=== PATIENT | female | born 1945 | race Two or more races ===

== ENCOUNTER 2020-09-17 15:46 | Inpatient (IN) | payer MEDICARE, BC ==
[~2020-09-17] VITALS: Ht 167.6 cm; Wt 83.7 kg
[2020-09-17 16:13] LABS: BASOPHILS # (AUTO) 0.1 /CMM (0.0-0.2); BASOPHILS % (AUTO) 0.5 % (0.0-2.0); EOSINOPHILS % (AUTO) 1.1 % (0.0-6.0); HEMATOCRIT 34 % (33-45); HEMOGLOBIN 10.8 g/dL (11.5-14.8); LYMPHOCYTES # (AUTO) 0.6 /CMM (0.8-4.8); LYMPHOCYTES % (AUTO) 5.5 % (20.0-44.0); MEAN CORPUSCULAR HGB CONC 32 g/dl (31.0-36.0); MEAN CORPUSCULAR VOLUME 97 fL (82-100); MONOCYTES # (AUTO) 0.5 /CMM (0.1-1.30); MONOCYTES % (AUTO) 4.4 % (2.0-12.0); NEUTROPHILS % (AUTO) 88.5 % (43.0-81.0); PLATELET COUNT (AUTO) 362 /CMM (150-450); RED BLOOD CELL COUNT(AUTO) 3.51 MIL/uL (4.0-5.2); WHITE BLOOD COUNT (AUTO) 11.2 K/uL (4.3-11.0)
--- NOTE | 2020-09-17 16:13 | NUR ---
BIBPA FROM SNF TO ER BED 5. NON VERBAL BUT AWAKE. PT IS ON VENT AC10, VT500, O2 40% AND +5PEEP. BED BOUND. BROUGHT IN FOR AN ABNORMAL CHEST XRAY RESULT. PER REPORT, SUPERFICIAL MEDIASTINAL WIDENING ANEURYSM / LYMPHADENOPATHY. PT NOTED HYPERTENSIVE WITH SBPO 170. MD WAS AT THE BEDSIDE FOR EVAL. ORDERS RECEIVED, NOTED AND CARRIED OUT. IV LINE ESTABLSIHED ON LAC 18G. BLOOD DRAWN AND GIVEN TO MIDDLE SCHOOL COACH AT BEDSIDE.
[2020-09-17] MEDS ORDERED: DEXT1CAP3 PO (16:14)
[2020-09-17] MEDS ORDERED: CALC0.253 GT (16:14)
[2020-09-17] MEDS ORDERED: MEMA10TA56 PO (16:14)
[2020-09-17] MEDS ORDERED: APIX5TAB PO (16:14)
[2020-09-17] MEDS ORDERED: SERT100T12 PO (16:14)
[2020-09-17] MEDS ORDERED: CARV6.252 PO (16:14)
[2020-09-17] MEDS ORDERED: GABA300C PO (16:14)
[2020-09-17] MEDS ORDERED: GALA4TAB23 PO (16:14)
[2020-09-17] MEDS ORDERED: LEVO75TA7 PO (16:14)
[2020-09-17 16:21] LABS: CALCIUM, SERUM 8.1 mg/dL (8.5-10.1); CREATININE 0.7 mg/dL (0.6-1.3); POTASSIUM 4.3 mmol/L (3.5-5.1)
[2020-09-17] MEDS ORDERED: BISA10SU11 RC (16:23)
[2020-09-17] MEDS ORDERED: FAMO20TA8 GT (16:23)
[2020-09-17] MEDS ORDERED: ACET-868 GT (16:23)
[2020-09-17] MEDS ORDERED: FURO-144 GT (16:23)
[2020-09-17] MEDS ORDERED: IPRA0.2S49 IH (16:23)
[2020-09-17] MEDS ORDERED: ATOR80TA GT (16:23)
[2020-09-17] MEDS ORDERED: METO100T14 GT (16:23)
[2020-09-17] MEDS ORDERED: NA P133E RC (16:23)
[2020-09-17] MEDS ORDERED: TRAM50TA2 GT (16:23)
[2020-09-17] MEDS ORDERED: MAGN400T8 GT (16:23)
[2020-09-17] MEDS ORDERED: CLON1TAB12 GT (16:23)
[2020-09-17] MEDS ORDERED: LEVO125T8 GT (16:23)
[2020-09-17] MEDS ORDERED: AMIN887L GT (16:23)
[2020-09-17] MEDS ORDERED: QUET25TA GT (16:23)
[2020-09-17] MEDS ORDERED: MULT-439 GT (16:23)
[2020-09-17] MEDS ORDERED: EZET10TA6 GT (16:23)
[2020-09-17] MEDS ORDERED: MAGN400O6 GT (16:23)
--- NOTE | 2020-09-17 16:26 | NUR ---
COVID SWAB DONE AND SENT TO LAB
[2020-09-17] MEDS ORDERED: IV NS 0.9% 250 ML IV ONE (16:31)
[2020-09-17] MEDS ORDERED: IOHEXOL-350 100 ML VIAL IV ONE (16:31)
[2020-09-17] MEDS ORDERED: CT SWABBABLE VALVE TRANS SET 1 EA INFUS.SET MC ONE (16:31)
--- NOTE | 2020-09-17 16:44 | NUR ---
PT TO CT ON DEO WITH BOTTOM PRESSER AND RT AT BEDSIDE
--- NOTE | 2020-09-17 17:40 | NUR ---
pt noted with red blood in the trach tube. md made aware. rt notified for suctioning
--- NOTE | 2020-09-17 18:00 | NUR ---
TRANSPORT AM [facility] ETA 2130 PER [facility] TRANSPORT [facility] ETA 2300 PER [facility] TRIP #[id number]
--- NOTE | 2020-09-17 18:12 | NUR ---
pt noted hyperventilating, trying to fight vent. pt has order of anti anxiety at the facility for the hyperventilation. md made aware. verbal order received to give ativan 1mg iv x 1.
[2020-09-17] MEDS ORDERED: LORAZEPAM INJ 2 MG/ML VIAL ONE (18:14)
[2020-09-17] MEDS ORDERED: LORAZEPAM INJ 2 MG/ML VIAL IV ONE (18:30)
--- NOTE | 2020-09-17 20:22 | NUR ---
CALLED TRACY GARCIA TO NOTIFY THAT THE PATIENT IS MEDICALLY CLEARED TO GO BACK. SPOKE WITH VAUGHN TYLER
--- NOTE | 2020-09-17 21:00 | NUR ---
PT NOTED BREATHING RAPID TRYING TO FIGHT THE VENT. PT IS NOTED TACHYCARDIC @ 120S. MD AWARE. RT AT BEDSIDE
--- NOTE | 2020-09-17 21:56 | NUR ---
DR. LUNA PAGED FOR ADMISSION PER ER MD ORDER.
[2020-09-17] MEDS ORDERED: VANCOMYCIN 1 GM in IV D5W 250 ML IV ONE (22:00)
[2020-09-17] MEDS ORDERED: CEFEPIME 1 GM in IV D5W 50 ML IV ONE (22:00)
[2020-09-17] MEDS ORDERED: CEFEPIME 1 GM VIAL ONE (22:04)
[2020-09-17] MEDS ORDERED: VANCOMYCIN 1 GM VIAL ONE (22:04)
--- NOTE | 2020-09-17 22:09 | NUR ---
DR. LUNA PAGED PER ORDER
--- NOTE | 2020-09-17 22:38 | NUR ---
Dang suazo in [facility] - 09/17/20 at 2238 by MYRA [phone]
--- NOTE | 2020-09-17 22:48 | NUR ---
DR. HE SPEAKING WITH DR. LUNA REGARDING ADMISSION
--- NOTE | 2020-09-17 22:53 | NUR ---
ADMISSION ORDERS RECEIVED FROM DR. LUNA.
--- NOTE | 2020-09-17 23:45 | NUR ---
report given to mykel sadler for ezequiel
--- NOTE | 2020-09-18 00:01 | NUR ---
pt transported to unit on [facility] with emt, rt and rn w/ acls protocol. nad noted during transport
[2020-09-18 00:05] VITALS: BP 127/89
--- NOTE | 2020-09-18 00:05 | NUR ---
MS2 RADIO OPERATOR ADMITTED A 74YR OLD FEMALE PATIENT WITH ADMITTING DIAGNOSIS OF PNA AND SOB UNDER THE CARE OF DR. JEREMY CARLISLE. DNR PER ER NURSE SIVAN WITH ALLERGIES TO RISPERDONE. PT AWAKE, NONVERBAL. BREATHING EVEN AND UNLABORED WITH NO SOB OR ACUTE DISTRESS NOTED IN MECHANICAL VENT. GTUBE PATENT. 0 GASTRIC RESIDUAL NOTED. PLACEMENT VERIFIED VIA AUSCULTATION. CONTINUED GTUBE FEEDING ORDERED. LEFT AC #18 PATENT AND INTACT. NO BELONGING NOTED. PT KEPT CLEAN AND DRY. ALL NEEDS RENDERED. REPOSITIONED Q2H. SUCTIONED NEEDED. CALL LIGHT WITHIN REACH. WILL CONTINUE TO MONITOR.
[2020-09-18 00:13] LABS: ABG BASE EXCESS 6.3 mmol/L; ABG OXYGEN SATURATION 95.1 % (92.0-98.5); ABG PCO2 52.7 mmHg (35.0-45.0); ABG PH 7.405 (7.350-7.450); AaDO2 217.2 mmHg; COHb 0.3 % (0.5-1.5); MetHb 0.3 % (0.0-1.5); O2Hb 94.5 % (94.0-97.0); SITE, ABG Left Radial; VENT MODE, BG AC 10 500 50% +5
[2020-09-18] MEDS ORDERED: JEVITY 1.2 CAL 1,000 ML BOTTLE GT SCH (00:30)
--- NOTE | 2020-09-18 02:03 | NUR ---
RT NOTE Pt rec'd trached on [facility] vent on AC mode. Pt shows no signs of resp distress or sob. Trach is patent and secured. sx'd for thick mod amt of blood tinged secretions. Alarms are set and audible. vent plugged into red outlet. ambu bag bedside. Will continue to monitor closely. Addendum: 09/18/20 at 0204 by EZEQUIEL FREIRE RT Amended: Links added.
--- NOTE | 2020-09-18 02:50 | NUR ---
MS2 RN NOTE SPOKE WITH DR. LUNA AND OBTAINED AN ORDER FOR ATIVAN 0.5MG IV Q4H PRN FOR AGITATION. NEW ORDER NOTED AND CARRIED OUT.
[2020-09-18] MEDS ORDERED: LORAZEPAM INJ 2 MG/ML VIAL IV PRN (03:00)
--- NOTE | 2020-09-18 03:04 | NUR ---
ms2 rn note spoke to ER charge nurse, ED. Per ED, Dr diehl gave basic orders with no DNR code status included. Also spoke with Stone MENDES from [facility], no signed POLST available .
--- NOTE | 2020-09-18 03:06 | NUR ---
MS2 RN NOTE DISCONTINUED DNR ORDER AND CHANGED PATIENT TO FULL CODE STATUS.
[2020-09-18 04:00] VITALS: BP 154/97
--- NOTE | 2020-09-18 05:18 | NUR ---
ms2 rn note Paged Dr. Bautista to notify about vte score. Pt has an order for eliquis. Awaiting call back.
--- NOTE | 2020-09-18 06:24 | NUR ---
MS2 RN NOTE PT IN BED, AWAKE , NONVERBAL. BREATHING EVEN AND UNLABORED WITH NO SOB OR ACUTE DISTRESS NOTED IN MECHANICAL VENT. SP02 100%. SINUS TACHY HR 114 NO S/S OF PAIN OR DISCOMFORT. LEFT AC #18 PATENT AND INTACT. GTUBE PATENT. GTF INFUSING WELL. 0 RESIDUAL NOTED. PT KEPT CLEAN AND DRY. ALL NEEDS RENDERED. REPOSITIONED Q2H. SRX2 UP. BED IN LOWEST POSITION. CALL LIGHT WITHIN REACH . WILL ENDORSE TO AM NURSE FOR CONTINUITY OF CARE.
--- NOTE | 2020-09-18 06:50 | NUR ---
MS2 RN NOTE REPORT GIVEN TO VAUGHN LUDWIG.
[2020-09-18 06:54] LABS: BASOPHILS % (AUTO) 0.1 % (0.0-2.0); HEMATOCRIT 34 % (33-45); HEMOGLOBIN 10.8 g/dL (11.5-14.8); LYMPHOCYTES # (AUTO) 0.5 /CMM (0.8-4.8); LYMPHOCYTES % (AUTO) 2.3 % (20.0-44.0); MEAN CORPUSCULAR HGB CONC 32 g/dl (31.0-36.0); MEAN CORPUSCULAR VOLUME 96 fL (82-100); MONOCYTES # (AUTO) 0.7 /CMM (0.1-1.30); NEUTROPHILS # (AUTO) 20.3 /CMM (1.8-8.9); NEUTROPHILS % (AUTO) 94.6 % (43.0-81.0); PLATELET COUNT (AUTO) 347 /CMM (150-450); RED BLOOD CELL COUNT(AUTO) 3.58 MIL/uL (4.0-5.2); WHITE BLOOD COUNT (AUTO) 21.4 K/uL (4.3-11.0)
--- NOTE | 2020-09-18 07:15 | NUR ---
PT EYES OPEN AND NON VERBAL IN ROOM. HOB ELEVATED. VENT SETTINGS ORDERED TOLERATING SATURATION AT 95% AND ABOVE. LARGE AMOUNTS OF ORAL SECRETIONS NOTED AND PT REQUIRES FREQUENT ORAL SUCTIONING. HOB WILL BE MAINTAINED 30-45 DEGREES. TELE ON SINUS TACHY 110S. JEVITY RUNNING 70 ML/HR. GT PLACEMENT CHECKED VIA AUSCULTATION AND RESIDUAL. NO RESIDUAL. L AC FLUSHED. DRESSING INTACT. WILL MONITOR RESPIRATORY STATUS AND RESPONSE TO GT FEEDING. WILL REPORT NEEDED. AWAITING PCR RESULTS. ALL HOSPITAL POLICY SAFETY PRECAUTIONS IMPLEMENTED. WILL REPORT TO MD NEEDED.
[2020-09-18 07:42] LABS: CALCIUM, SERUM 8.5 mg/dL (8.5-10.1); POTASSIUM 4.2 mmol/L (3.5-5.1)
[2020-09-18 08:00] VITALS: BP 142/79
--- NOTE | 2020-09-18 08:00 | NUR ---
PT HAD 1 EPISODE OF BEIGE CHUNKY EMESIS. GT FEEDING PAUSED. RECHECKED FOR PLACEMENT VIA RESIDUAL AND AUSCULTATION. HOB MAINTAINED AT 45 DEGREES. MD NOTIFIED.
[2020-09-18] MEDS ORDERED: JEVITY 1.2 CAL 1,000 ML BOTTLE GT PRN (08:30)
[2020-09-18] MEDS ORDERED: FUROSEMIDE 40 MG TABLET GT SCH ×3 (10:30→11:18)
[2020-09-18] MEDS ORDERED: FUROSEMIDE 40 MG TABLET PO SCH (10:30)
[2020-09-18] MEDS ORDERED: FAMOTIDINE (20 MG) 20 MG TABLET GT SCH ×3 (10:30→11:18)
[2020-09-18] MEDS ORDERED: PROSOURCE / PROSTAT (PYXIS) 30 ML UDC GT SCH ×3 (10:30→11:19)
[2020-09-18] MEDS ORDERED: QUETIAPINE FUMARATE 25 MG TABLET GT SCH ×3 (10:30→11:19)
[2020-09-18] MEDS ORDERED: MAGNESIUM OXIDE 400 MG TABLET GT SCH (10:30)
[2020-09-18] MEDS ORDERED: NA PHOS,M-B/NA PHOS,DI-BA 1 EA ENEMA RC PRN (10:30)
[2020-09-18] MEDS ORDERED: LEVOTHYROXINE SODIUM 125 MCG TABLET GT SCH ×3 (10:30→11:19)
[2020-09-18] MEDS ORDERED: BISACODYL SUPP (10 MG) 10 MG/SUPP.RECT SUPP.RECT RC PRN (10:30)
[2020-09-18] MEDS ORDERED: CALCITRIOL 0.25 MCG CAPSULE GT SCH ×3 (10:30→11:18)
[2020-09-18] MEDS ORDERED: methylPREDNISolone SOD SUCC 125 MG/2ML VIAL IV SCH (10:30)
[2020-09-18] MEDS ORDERED: MAGNESIUM HYDROXIDE 30 ML UDC GT PRN (10:30)
--- NOTE | 2020-09-18 10:30 | NUR ---
INFORMED ADMIN AND PHARMACY PT IS NOT IN OMNICELL MACHINE AND UNABLE TO PULL OUT MEDICATIONS. NO MEDICATIONS APPEAR ON OMNICELL. PHARMACY WILL CALL BACK.
[2020-09-18] MEDS ORDERED: MULTIVIT W/MINERALS 1 TAB TABLET GT SCH ×3 (10:33→11:20)
[2020-09-18] MEDS ORDERED: METOPROLOL TARTRATE 50 MG TABLET GT SCH ×3 (10:33→11:20)
[2020-09-18] MEDS ORDERED: methylPREDNISolone SOD SUCC 40 MG/ML VIAL IV SCH ×2 (11:11→11:17)
[2020-09-18] MEDS ORDERED: IPRATROPIUM BROMIDE 14 GM INHALER (or 12.9 GM) IH SCH (11:30)
[2020-09-18] MEDS ORDERED: IPRATROPIUM NEB FS 0.5 MG/2.5 ML AMPUL.NEB NEB SCH (11:30)
[2020-09-18 12:00] VITALS: BP 113/71
--- NOTE | 2020-09-18 12:00 | NUR ---
ADMIN CALLED BACK AND SAID THEY WILL CALL BACK WHEN PROBLEM SOLVED FOR PATIENT TO APPEAR ON OMNICELL. INFORMED PHARMACY.
--- NOTE | 2020-09-18 12:40 | NUR ---
SS consult requested by Devon Cohn for POLST. The pt. is a 74-year old female at [facility] with history of trach and vent dependent respiratory failure presenting for further evaluation of abnormal chest x-ray. Per EMR, the pt. comes from [facility] [[id number] [facility]. [facility] [address]; [phone]]. SW called [facility] [phone] and spoke to the charge nurse who informed SW that the pt. does not have a POLST. SW called the pt.s conservator, Marylin Mercer [phone] who stated that any other treatment is okay, but I want "No CPR. Noted. Marylin requested a medical update and SW transferred the call to pt.s nurse. VIRIDIANA called MS2 and spoke to the pt.s nurse, Cedric and informed her that Dr. Bautista must speak with Marylin and SW may assist with paperwork. Cedric stated they understood and will inform Dr. Bautista. SW will be available as needed.
[2020-09-18 16:00] VITALS: BP 125/77
--- NOTE | 2020-09-18 16:00 | NUR ---
AWAITING CALL FROM ADMIN AND PHARMACY ON SOLUTION TO WHY PT IS NOT APPEARING ON OMNICELL.
--- NOTE | 2020-09-18 16:36 | NUR ---
SPOKE W PHARMACY TO ADJUST TIMES FOR DAILY MEDICATIONS.
--- NOTE | 2020-09-18 16:49 | NUR ---
MD ORDER OK TO TRANSFER TO TELEMETRY.
--- NOTE | 2020-09-18 18:45 | NUR ---
PT ATTEMPTING TO REMOVE VENTILATOR TUBING. INCREASED SUPERVISION PROVIDED. HID THE TUBING. DECREASED STIMULATION. REORIENTATED PT AND PROVIDED INSTRUCTIONS NOT TO REMOVE TUBING. ALL UNSUCCESSFUL. DR LUNA INFORMED. ORDER FOR SOFT WRIST RESTRAINT ON L WRIST. MONITORING CIRCULATION, SKIN, RESPONSE TO RESTRAINT Q2H.
--- NOTE | 2020-09-18 19:34 | NUR ---
PT EYES OPEN AND NON VERBAL IN ROOM. HOB ELEVATED. VENT SETTINGS ORDERED TOLERATING SATURATION AT 95% AND ABOVE. LARGE AMOUNTS OF ORAL SECRETIONS NOTED AND PT REQUIRED FREQUENT ORAL SUCTIONING Q1H. HOB MAINTAINED 30-45 DEGREES. TELE ON SINUS TACHY 110S. JEVITY RUNNING 70 ML/HR. GT PLACEMENT CHECKED VIA AUSCULTATION AND RESIDUAL. NO RESIDUAL. L AC FLUSHED. DRESSING INTACT. RESTRAINT ON ORDERED ON L WRIST SOFT WRIST RESTRAINT. MONITORED L WRIST CIRCULATION Q15 MIN. ASSESSED PT Q2H. MONITORED RESPIRATORY STATUS AND RESPONSE TO GT FEEDING. REPORTED NEEDED. AWAITING PCR RESULTS. ALL HOSPITAL POLICY SAFETY PRECAUTIONS IMPLEMENTED. WILL REPORT TO MD NEEDED.
--- NOTE | 2020-09-18 19:50 | NUR ---
SHANK PINNER OPENING NOTES RECEIVED PATIENT IN BED, NON-VERBAL EYES OPEN. TRACHEOSTOMY INTACT CONNECTED TO MECHANICAL VENT, CURRENT SETTING TOLERATING WELL. BREATHING REGULAR AND UNLABORED, LATEST SPO2 99%. LEFT AC G18 IV LINE INTACT AND PATENT, FLUSHING WELL WITH NO BLEEDING OR S/S OF INFILTRATION NOTED. ON CARDIAC MONITORING WITH SINUS TACHYCARDIA AT 110bpm. GTUBE PATENT WITH NO RESIDUAL ASPIRATED. NO S/S OF PAIN/DISCOMFORT NOTED AT THIS TIME. LEFT WRIST SOFT RESTRAINT ON, SKIN ASSESSMENT DONE. BED LOW AND LOCKED ON SEMI FOWLERS POSITION. CALL LIGHT IN REACH. WILL CONTINUE TO MONITOR.
[2020-09-18 20:00] VITALS: BP 140/91
[2020-09-18] MEDS: METOPROLOL TARTRATE 50 MG TABLET GT SCH (21:07)
[2020-09-18] MEDS: ATORVASTATIN 40 MG TABLET GT SCH (21:07)
[2020-09-18] MEDS: EZETIMIBE 10 MG TABLET GT SCH (21:07)
[2020-09-18] MEDS: IPRATROPIUM BROMIDE 14 GM INHALER (or 12.9 GM) IH SCH ×2 (21:08→23:31)
[2020-09-18] MEDS: CALCITRIOL 0.25 MCG CAPSULE GT SCH (21:11)
[2020-09-18] MEDS: FAMOTIDINE (20 MG) 20 MG TABLET GT SCH (21:11)
[2020-09-18] MEDS: methylPREDNISolone SOD SUCC 40 MG/ML VIAL IV SCH (21:11)
[2020-09-18] MEDS: LEVOTHYROXINE SODIUM 125 MCG TABLET GT SCH (21:11)
[2020-09-18] MEDS: QUETIAPINE FUMARATE 25 MG TABLET GT SCH (21:13)
[2020-09-18] MEDS: FUROSEMIDE 40 MG TABLET GT SCH (21:13)
[2020-09-19] VITALS: BP 103/58
[2020-09-19 04:00] VITALS: BP_SYST 106; BP_SYST 108; BP_DIAS 60
[2020-09-19] MEDS: IPRATROPIUM BROMIDE 14 GM INHALER (or 12.9 GM) IH SCH ×6 (04:32→23:27)
[2020-09-19] MEDS: JEVITY 1.2 CAL 1,000 ML BOTTLE GT PRN ×2 (05:04→19:07)
[2020-09-19] MEDS: LEVOTHYROXINE SODIUM 125 MCG TABLET GT SCH (06:38)
--- NOTE | 2020-09-19 06:50 | NUR ---
BRAKE LINING FINISHER ASBESTOS CLOSING NOTES PATIENT IN BED, NON-VERBAL EYES OPEN. AFEBRILE WITH NO S/S OF DISTRESS OBSERVED. LATEST SPO2 99%. LEFT AC G18 IV LINE PATENT AND FLUSHING WELL. MAINTAINED ON CARDIAC MONITORING WITH NSR. GTUBE PATENT WITH NO RESIDUAL ASPIRATED. NO S/S OF PAIN/DISCOMFORT NOTED AT THIS TIME. LEFT WRIST SOFT RESTRAINT ON, SKIN ASSESSMENT DONE. BED LOW AND LOCKED ON SEMI FOWLERS POSITION. CALL LIGHT IN REACH. WILL ENDORSE TO MORNING SHIFT FOR CHLOÉ.
[2020-09-19 06:59] LABS: BASOPHILS % (AUTO) 0.1 % (0.0-2.0); HEMATOCRIT 28 % (33-45); HEMOGLOBIN 9.1 g/dL (11.5-14.8); LYMPHOCYTES # (AUTO) 0.3 /CMM (0.8-4.8); LYMPHOCYTES % (AUTO) 1.9 % (20.0-44.0); MEAN CORPUSCULAR HGB CONC 32 g/dl (31.0-36.0); MEAN CORPUSCULAR VOLUME 97 fL (82-100); MONOCYTES # (AUTO) 0.2 /CMM (0.1-1.30); MONOCYTES % (AUTO) 1.2 % (2.0-12.0); NEUTROPHILS # (AUTO) 13.4 /CMM (1.8-8.9); NEUTROPHILS % (AUTO) 96.8 % (43.0-81.0); PLATELET COUNT (AUTO) 297 /CMM (150-450); RED BLOOD CELL COUNT(AUTO) 2.91 MIL/uL (4.0-5.2); WHITE BLOOD COUNT (AUTO) 13.8 K/uL (4.3-11.0)
[2020-09-19 08:00] VITALS: BP 123/63
[2020-09-19 08:46] LABS: CALCIUM, SERUM 8.3 mg/dL (8.5-10.1); CREATININE 1.1 mg/dL (0.6-1.3); MAGNESIUM 2.8 mg/dL (1.8-2.4); PHOSPHORUS 2.7 mg/dL (2.5-4.9); POTASSIUM 3.9 mmol/L (3.5-5.1)
[2020-09-19 09:30] LABS: THYROID STIMULATING HORMONE 1.459 uIU/mL (0.358-3.74)
[2020-09-19] MEDS: CALCITRIOL 0.25 MCG CAPSULE GT SCH (09:43)
[2020-09-19] MEDS: methylPREDNISolone SOD SUCC 40 MG/ML VIAL IV SCH ×2 (09:43→16:02)
[2020-09-19] MEDS: QUETIAPINE FUMARATE 25 MG TABLET GT SCH ×2 (09:44→16:03)
[2020-09-19] MEDS: FAMOTIDINE (20 MG) 20 MG TABLET GT SCH (09:44)
[2020-09-19] MEDS: FUROSEMIDE 40 MG TABLET GT SCH (09:44)
[2020-09-19] MEDS: ENOXAPARIN SODIUM 30 MG/0.3 ML DISP.SYRIN SQ SCH (09:45)
[2020-09-19] MEDS: METOPROLOL TARTRATE 50 MG TABLET GT SCH ×2 (09:46→22:13)
[2020-09-19 12:00] VITALS: BP 103/49
[2020-09-19] MEDS: ZOSYN IVPB 4.5 G in IV D5W 50ml IV SCH ×2 (12:41→18:43)
[2020-09-19] MEDS ORDERED: PIPERACILLIN /TAZOBACTAM 3.375 G in IV D5W 50 ML IV SCH (13:00)
[2020-09-19] MEDS: SOD FERRIC GLUC 125 MG in IV NS 0.9% 100 ML IV SCH (14:35)
--- NOTE | 2020-09-19 15:00 | NUR ---
ASSOCIATE PATHOLOGIST NOTES IV NOTED LEAKING. NEW IV STARTED ON RIGHT HAND WITH GOOD BLOOD RETURN. WILL CONTINUE TO MONITOR.
[2020-09-19 16:00] VITALS: BP 125/66
--- NOTE | 2020-09-19 19:46 | NUR ---
[employer] FOUNDER NOTED. PATIENT IN BED RESTING NO SOB OR ACUTE DISTRESS NOTED. PATIENT VENT DEPENDENT. ON TELE MONITORING SR. ALL DUE MEDICATIONS ADMINISTERED. ALL NEEDS MET. PATIENT ON G-TUBE FEEDING TOLERATING WELL. PERIPHERAL IV INTACT PATENT. NO ACUTE CHANGES NOTED. ENDORSED CARE TO PM SHIFT.
[2020-09-19 20:00] VITALS: BP 142/78
[2020-09-19] MEDS: EZETIMIBE 10 MG TABLET GT SCH (22:12)
[2020-09-19] MEDS: ATORVASTATIN 40 MG TABLET GT SCH (22:12)
[2020-09-19] MEDS: MULTIVIT W/MINERALS 1 TAB TABLET GT SCH (22:12)
[2020-09-19] MEDS: PROSOURCE / PROSTAT (PYXIS) 30 ML UDC GT SCH (22:38)
[2020-09-20] VITALS: BP 106/83
[2020-09-20] MEDS: ZOSYN IVPB 4.5 G in IV D5W 50ml IV SCH ×3 (01:12→20:14)
[2020-09-20 04:00] VITALS: BP 151/87
[2020-09-20] MEDS: IPRATROPIUM BROMIDE 14 GM INHALER (or 12.9 GM) IH SCH ×6 (04:00→23:33)
--- NOTE | 2020-09-20 05:52 | NUR ---
PATIENT RECEIVED ON TRACH TO VENT WITH SETTINGS OF AC 10, 500 Vt, 50%, +5. SUCTIONED FOR MINIMAL, THIN, WHITE SECRETIONS. GIVEN MDI TREATMENTS WITH NO ADVERSE REACTIONS. AMBU BAG AT BEDSIDE. VENT AND PULSE OXIMETER ALARMS AUDIBLE AND VISIBLE. Addendum: 09/20/20 at 0555 by SHANTELLE NEVES RT Amended: Links added.
--- NOTE | 2020-09-20 06:30 | NUR ---
LOCKSTITCH HEMMER NOTED PATIENT IN BED IN NO APPARENT DISTRESS. PT HAS THICK WHITE MINIMAL SECRETIONS. SUCTIONED. . PATIENT VENT DEPENDENT. ON TELE MONITORING SR. ON CONT SPO2 MONITOR. VENT SETTINGS ARE SET ORDERED. GTF RUNNING JEVITY AT 70 ML PER HOUR. PT HAS A LOT OF RESIDUAL AIR BUT FLUID RESIDUAL LESS THEN 10 ML. RIGHT HAND 22 GAUGE IV FLUSHED NO S/S OF INFILTRATION. NO ACUTE CHANGES NOTED WILL ENDORSE TO ONCOMING SHIFT.
[2020-09-20] MEDS: LEVOTHYROXINE SODIUM 125 MCG TABLET GT SCH (06:50)
[2020-09-20 06:51] LABS: CALCIUM, SERUM 7.6 mg/dL (8.5-10.1); MAGNESIUM 2.7 mg/dL (1.8-2.4); PHOSPHORUS 3.8 mg/dL (2.5-4.9); POTASSIUM 3.9 mmol/L (3.5-5.1)
[2020-09-20 08:00] VITALS: BP 122/78
--- NOTE | 2020-09-20 08:00 | NUR ---
Feeding rate decreased to 55ml/hr. per it application development manager notes.
[2020-09-20 08:08] LABS: BASOPHILS % (AUTO) 0.3 % (0.0-2.0); HEMATOCRIT 33 % (33-45); LYMPHOCYTES # (AUTO) 0.4 /CMM (0.8-4.8); LYMPHOCYTES % (AUTO) 2.6 % (20.0-44.0); MEAN CORPUSCULAR HGB CONC 31 g/dl (31.0-36.0); MEAN CORPUSCULAR VOLUME 100 fL (82-100); MONOCYTES # (AUTO) 0.6 /CMM (0.1-1.30); NEUTROPHILS # (AUTO) 14.6 /CMM (1.8-8.9); NEUTROPHILS % (AUTO) 93.1 % (43.0-81.0); PLATELET COUNT (AUTO) 306 /CMM (150-450); RED BLOOD CELL COUNT(AUTO) 3.27 MIL/uL (4.0-5.2); WHITE BLOOD COUNT (AUTO) 15.6 K/uL (4.3-11.0)
[2020-09-20] MEDS: methylPREDNISolone SOD SUCC 40 MG/ML VIAL IV SCH ×2 (09:04→16:36)
[2020-09-20] MEDS: QUETIAPINE FUMARATE 25 MG TABLET GT SCH ×2 (09:04→16:36)
[2020-09-20] MEDS: FUROSEMIDE 40 MG TABLET GT SCH (09:05)
[2020-09-20] MEDS: FAMOTIDINE (20 MG) 20 MG TABLET GT SCH (09:05)
[2020-09-20] MEDS: METOPROLOL TARTRATE 50 MG TABLET GT SCH ×2 (09:05→21:10)
[2020-09-20] MEDS: MULTIVIT W/MINERALS 1 TAB TABLET GT SCH (09:06)
[2020-09-20] MEDS: ENOXAPARIN SODIUM 30 MG/0.3 ML DISP.SYRIN SQ SCH (09:06)
[2020-09-20] MEDS: JEVITY 1.2 CAL 1,000 ML BOTTLE GT PRN (09:08)
[2020-09-20] MEDS: PROSOURCE / PROSTAT (PYXIS) 30 ML UDC GT SCH (09:08)
[2020-09-20] MEDS: CALCITRIOL 0.25 MCG CAPSULE GT SCH (09:09)
[2020-09-20 12:00] VITALS: BP 152/88
[2020-09-20] MEDS ORDERED: PIPERACILLIN /TAZOBACTAM 3.375 G in IV D5W 100 ML IV SCH (13:00)
--- NOTE | 2020-09-20 14:14 | NUR ---
dr Bautista notified patient positive for MRSA nares. Bactroban ordered per
[2020-09-20] MEDS ORDERED: VANCOMYCIN 1 GM in IV D5W 250 ML IV ONE (15:00)
[2020-09-20] MEDS ORDERED: VANCOMYCIN 1.5 GM in IV D5W 500ml IV ONE (15:00)
[2020-09-20 16:00] VITALS: BP 166/93
[2020-09-20] MEDS: SOD FERRIC GLUC 125 MG in IV NS 0.9% 100 ML IV SCH (18:34)
--- NOTE | 2020-09-20 18:55 | NUR ---
Patient is obtunded, trach. Breathing unlabored and even, afebrile with stable VS. IV line intact and patent. Suctioned frequently, moderate amount of mucus. Sputum specimen sent to lab . IV meds administrated. Patient kept clean and dry, repositioned Q2HR. G-tube flushed as ordered. SAfety and aspiration precautions implemented at all times. Feeding running at 55 ml/hr as recommended. Will endorse to next shift for CHLOÉ
--- NOTE | 2020-09-20 19:18 | NUR ---
RN OPENING NOTES Received patient asleep, on vent with current settings noted, no respiratory distress noted, saturating well on RA. No s/sx of discomfort noted. On fall and aspiration precautions noted. Kept on bed clean, dry and comfortable. Will continue to monitor accordingly.
[2020-09-20 19:56] VITALS: BP 120/77
[2020-09-20] MEDS: EZETIMIBE 10 MG TABLET GT SCH (21:09)
[2020-09-20] MEDS: ATORVASTATIN 40 MG TABLET GT SCH (21:09)
[2020-09-20] MEDS: MUPIROCIN OINT 2% 22 GM TUBE NS SCH (21:27)
[2020-09-20] MEDS: ACETAMINOPHEN 325 MG TABLET MC PRN (23:47)
[2020-09-21] VITALS (8 sets, daily range): BP systolic 130–163; BP diastolic 77–98
[2020-09-21] MEDS: ZOSYN IVPB 4.5 G in IV D5W 50ml IV SCH ×4 (02:19→21:10)
[2020-09-21] MEDS: JEVITY 1.2 CAL 1,000 ML BOTTLE GT PRN (02:19)
[2020-09-21] MEDS: IPRATROPIUM BROMIDE 14 GM INHALER (or 12.9 GM) IH SCH ×6 (03:33→22:51)
[2020-09-21] MEDS: VANCOMYCIN 0.75 GM in IV D5W 250 ML IV SCH ×2 (04:00→16:46)
[2020-09-21 06:48] LABS: BASOPHILS % (AUTO) 0.1 % (0.0-2.0); HEMATOCRIT 31 % (33-45); HEMOGLOBIN 9.7 g/dL (11.5-14.8); LYMPHOCYTES # (AUTO) 0.6 /CMM (0.8-4.8); LYMPHOCYTES % (AUTO) 4.5 % (20.0-44.0); MEAN CORPUSCULAR HGB CONC 31 g/dl (31.0-36.0); MEAN CORPUSCULAR VOLUME 96 fL (82-100); MONOCYTES # (AUTO) 0.9 /CMM (0.1-1.30); MONOCYTES % (AUTO) 6.5 % (2.0-12.0); NEUTROPHILS # (AUTO) 12.6 /CMM (1.8-8.9); NEUTROPHILS % (AUTO) 88.9 % (43.0-81.0); PLATELET COUNT (AUTO) 354 /CMM (150-450); RED BLOOD CELL COUNT(AUTO) 3.23 MIL/uL (4.0-5.2); WHITE BLOOD COUNT (AUTO) 14.2 K/uL (4.3-11.0)
[2020-09-21 07:19] LABS: CALCIUM, SERUM 7.1 mg/dL (8.5-10.1); MAGNESIUM 2.4 mg/dL (1.8-2.4); PHOSPHORUS 3.7 mg/dL (2.5-4.9); POTASSIUM 3.6 mmol/L (3.5-5.1)
--- NOTE | 2020-09-21 07:20 | NUR ---
ENVIRONMENTAL DEPARTMENT MANAGER NOTES PATIENT IN BED EYES OPEN, NON VERBAL. ON VENTILATOR SET ON ORDERED SETTING. NO ACUTE DISTRESS NOTED. NO SOB NOTED.ON G TUBE INFUSING WELL. IV ACCESS PATENT AND INTACT, NO REDNESS, NO SWELLING NOTED. HEAD OF BED ELEVATED. SAFETY MEASURES IN PLACE. CALL LIGHT WITHIN REACH. WILL CONTINUE TO MONITOR ACCORDINGLY.
--- NOTE | 2020-09-21 07:39 | NUR ---
RN CLOSING NOTES Pt on bed comfortable no new unusualities noted. Due meds given as ordered, all nursing needs attended. Kept on bed clean, dry and comfortable. On fall and aspiration precautions. Endorsed.
[2020-09-21] MEDS: LEVOTHYROXINE SODIUM 125 MCG TABLET GT SCH (07:56)
[2020-09-21] MEDS: ENOXAPARIN SODIUM 30 MG/0.3 ML DISP.SYRIN SQ SCH (08:51)
[2020-09-21] MEDS: MUPIROCIN OINT 2% 22 GM TUBE NS SCH ×2 (08:52→21:12)
[2020-09-21] MEDS: CALCITRIOL 0.25 MCG CAPSULE GT SCH (08:54)
[2020-09-21] MEDS: MULTIVIT W/MINERALS 1 TAB TABLET GT SCH (08:55)
[2020-09-21] MEDS: METOPROLOL TARTRATE 50 MG TABLET GT SCH ×2 (08:55→21:10)
[2020-09-21] MEDS: FAMOTIDINE (20 MG) 20 MG TABLET GT SCH (08:55)
[2020-09-21] MEDS: QUETIAPINE FUMARATE 25 MG TABLET GT SCH ×2 (08:55→16:47)
[2020-09-21] MEDS: FUROSEMIDE 40 MG TABLET GT SCH (08:56)
[2020-09-21] MEDS: methylPREDNISolone SOD SUCC 40 MG/ML VIAL IV SCH ×2 (08:56→16:47)
[2020-09-21] MEDS: ACETAMINOPHEN 325 MG TABLET MC PRN (08:56)
[2020-09-21] MEDS: PROSOURCE / PROSTAT (PYXIS) 30 ML UDC GT SCH (08:57)
[2020-09-21] MEDS: SOD FERRIC GLUC 125 MG in IV NS 0.9% 100 ML IV SCH (15:28)
--- NOTE | 2020-09-21 19:00 | NUR ---
RIPSAW OPERATOR NOTES PATIENT IN BED EYES OPEN, NON VERBAL. ON VENTILATOR SET ON ORDERED SETTING. NO ACUTE DISTRESS NOTED. NO SOB NOTED.ON G TUBE INFUSING WELL. IV ACCESS PATENT AND INTACT, NO REDNESS, NO SWELLING NOTED. HEAD OF BED ELEVATED. NEEDS ATTENDED AND ANTICIPATED. SAFETY MEASURES IN PLACE. CALL LIGHT WITHIN REACH. WILL ENDORSE TO NIGHT NURSE FOR CONTINUITY OF CARE
--- NOTE | 2020-09-21 19:05 | NUR ---
international student counselor opening notes received patient in bed eyes open nonverbal , vent dependent, vent settings as ordered, cont. pulse ox as bedside, 02 sat 97%. on dam attendant sr 82. head of bed elevated for aspiration precautions, gtube intact and patent, no residuals noted. left wrist restraint intact skin remains wnl pulses palpable, skin color wnl. vent alarms audible, ambu bag at bedside, heels offloaded, oriented to staff and call light kept within reach, safety precautions rendered, low bed and locked all needs attended will continue to monitor and attend to needs.
--- NOTE | 2020-09-21 19:42 | NUR ---
mykel woodard notes hospitalist dipti made aware pt attempts to remove medical devices. vent dependent, new order noted and carried out to renew soft bilateral wrist restraints. Addendum: 09/21/20 at 1953 by JOSE ANTONIO SINGH RN correction soft wrist restraint to left wrist.
[2020-09-21] MEDS: EZETIMIBE 10 MG TABLET GT SCH (21:11)
[2020-09-21] MEDS: ATORVASTATIN 40 MG TABLET GT SCH (21:11)
[2020-09-22] VITALS (7 sets, daily range): BP systolic 115–158; BP diastolic 69–93
[2020-09-22] MEDS: JEVITY 1.2 CAL 1,000 ML BOTTLE GT PRN (02:15)
[2020-09-22] MEDS: ZOSYN IVPB 4.5 G in IV D5W 50ml IV SCH ×2 (02:15→08:50)
[2020-09-22] MEDS: IPRATROPIUM BROMIDE 14 GM INHALER (or 12.9 GM) IH SCH ×6 (03:29→23:32)
[2020-09-22] MEDS: VANCOMYCIN 0.75 GM in IV D5W 250 ML IV SCH (04:37)
--- NOTE | 2020-09-22 05:27 | NUR ---
PATIENT RECEIVED ON TRACH TO VENT WITH SETTINGS OF AC 10, 500 Vt, 30%, +5. SUCTIONED WITH LAVAGE FOR MINIMAL, THICK, WHITE SECRETIONS. GIVEN MDI TREATMENTS WITH NO ADVERSE REACTIONS. AMBU BAG AT BEDSIDE. VENT AND PULSE OXIMETER ALARMS AUDIBLE AND VISIBLE. Addendum: 09/22/20 at 0528 by SHANTELLE NEVES RT Amended: Links added.
--- NOTE | 2020-09-22 06:31 | NUR ---
bucket turner closing notes patient in bed eyes open nonverbal , vent dependent, vent settings as ordered, cont. pulse ox as bedside, 02 sat 97%. on residential monitor sr 83. head of bed elevated for aspiration precautions, gtube intact and patent, no residuals noted. left wrist restraint intact skin remains wnl pulses palpable, skin color wnl. vent alarms audible, ambu bag at bedside, heels offloaded, repositioned q2hrs and heels offloaded ,skin is intact sacral intact no redness, call light kept within reach, safety precautions rendered, low bed and locked all needs attended will continue to monitor and attend to needs and endorse to shift. pcr still pending. iv site to right hand #22 sl no redness, no infiltration present.
--- NOTE | 2020-09-22 07:05 | NUR ---
glove turner notes received call from [employer] patient had a small run of v tach 8 beats but than remained sr 80's. patient is no distress. vs wnl. hospitalist made aware, no orders at this time, will endorse to next shift to follow up.
[2020-09-22 07:06] LABS: BASOPHILS % (AUTO) 0.1 % (0.0-2.0); HEMATOCRIT 32 % (33-45); HEMOGLOBIN 10.1 g/dL (11.5-14.8); LYMPHOCYTES # (AUTO) 0.7 /CMM (0.8-4.8); MEAN CORPUSCULAR HGB CONC 32 g/dl (31.0-36.0); MEAN CORPUSCULAR VOLUME 96 fL (82-100); MONOCYTES # (AUTO) 0.8 /CMM (0.1-1.30); MONOCYTES % (AUTO) 6.9 % (2.0-12.0); NEUTROPHILS # (AUTO) 9.7 /CMM (1.8-8.9); PLATELET COUNT (AUTO) 312 /CMM (150-450); RED BLOOD CELL COUNT(AUTO) 3.29 MIL/uL (4.0-5.2); WHITE BLOOD COUNT (AUTO) 11.1 K/uL (4.3-11.0)
[2020-09-22 07:20] LABS: CALCIUM, SERUM 6.5 mg/dL (8.5-10.1); CREATININE 1.1 mg/dL (0.6-1.3); MAGNESIUM 2.3 mg/dL (1.8-2.4); PHOSPHORUS 4.3 mg/dL (2.5-4.9); POTASSIUM 3.3 mmol/L (3.5-5.1)
--- NOTE | 2020-09-22 07:23 | NUR ---
TRAFFIC CONTROL FLAGGER OPENING NOTES RECEIVED PATIENT IN BED, ASLEEP. PATIENT ON VENT; VENT SETTINGS TOLERATED WELL, CONTINUOS PULSE OX O2 AT 98%. ASTRO TECHNICIAN ON WITH A CURRENT READING SR 81. NO S/S OF PAIN SUCH FACIAL GRIMACING, GUARDING OR MOANING. PATIENT NON-VERBAL, SOFT WRIST RESTRAINS ON. G-TUBE PRESENT AND INTACT RUNNING JEVITY AT 55 MLS/HR. R HAND SL PRESENT. SAFETY PRECAUTIONS IN PLACE; BED IN LOW POSITION AND LOCKED, RAILS UP X2, CALL LIGHT WITHIN REACH, HOB ELEVATED. WILL CONTINUE TO MONITOR PATIENT.
--- NOTE | 2020-09-22 07:27 | NUR ---
received order from [facility] ekg stat follow up with cardio and am attending endorsed to am nurse, ekg order placed stat
--- NOTE | 2020-09-22 07:44 | NUR ---
FLATWORK TIER NOTES RECEIVED CALL FROM LAB WITH A CRITICAL LAB VALUE OF GLUCOSE 352. CONTACTED MD, AWAITING ORDERS. WILL FOLLOW-UP.
--- NOTE | 2020-09-22 08:04 | NUR ---
FIELD OPERATIONS FARM MANAGER NOTES LAB CALLED WITH A NEGATIVE RESULT FOR PCR COVID-19. NURSING INSURANCE RISK ANALYST NOTIFIED.
[2020-09-22] MEDS: LEVOTHYROXINE SODIUM 125 MCG TABLET GT SCH (08:37)
[2020-09-22] MEDS: MULTIVIT W/MINERALS 1 TAB TABLET GT SCH (08:37)
[2020-09-22] MEDS: methylPREDNISolone SOD SUCC 40 MG/ML VIAL IV SCH (08:37)
[2020-09-22] MEDS: QUETIAPINE FUMARATE 25 MG TABLET GT SCH ×2 (08:37→17:40)
[2020-09-22] MEDS: FUROSEMIDE 40 MG TABLET GT SCH (08:37)
[2020-09-22] MEDS: METOPROLOL TARTRATE 50 MG TABLET GT SCH ×2 (08:38→21:16)
[2020-09-22] MEDS: CALCITRIOL 0.25 MCG CAPSULE GT SCH (08:38)
[2020-09-22] MEDS: PROSOURCE / PROSTAT (PYXIS) 30 ML UDC GT SCH (08:39)
[2020-09-22] MEDS: MUPIROCIN OINT 2% 22 GM TUBE NS SCH ×2 (08:40→21:38)
[2020-09-22] MEDS: FAMOTIDINE (20 MG) 20 MG TABLET GT SCH (08:40)
[2020-09-22] MEDS: ENOXAPARIN SODIUM 30 MG/0.3 ML DISP.SYRIN SQ SCH (08:48)
[2020-09-22] MEDS ORDERED: POTASSIUM CHLORIDE 20 MEQ TAB.PRT.SR PO ONE (11:00)
[2020-09-22] MEDS ORDERED: INSULIN GLARGINE, 100 UNIT/ML CARTRIDGE SQ ONE (11:00)
--- NOTE | 2020-09-22 11:00 | NUR ---
JIMMIE PECAN GROWER NOTES RECEIVED PATIENT TRANSFERRED FROM MS2 RM 206, IN BED, ASLEEP. OPENS EYES TO TOUCH, NON VERBAL, WITH SHILEY 7 XLT TO MECHANICAL VENT WITH SETTINGS ORDERED: AC 10 TV 500 FIO2 30% PEEP 5 TOLERATING WELL, O2 SAT 96% BREATHING EVEN AND UNLABORED. SR WITH PAC HR 86,NO SIGNS PAIN, NO GRIMACINGS, LEFT WRIST RESTRAINT IN PLACE, RELEASED AND CHECKED FOR CIRCULATION THEN EVERY 2 HOURS, RIGHT HAND CONTRACTED, WITH IV ACCESS G 22 SL, FLUSHES WELL, SITE CLEAR. GTF OF JEVITY AT 55 ML/HR, CHECKED FOR PLACEMENT 10 ML RESIDUAL. NO SKIN ISSUES. SAFETY PRECAUTIONS IN PLACE; BED IN LOW POSITION AND LOCKED, RAILS UP X2, CALL LIGHT WITHIN REACH, HOB ELEVATED. WILL CONTINUE TO MONITOR PATIENT.
--- NOTE | 2020-09-22 11:09 | NUR ---
ETHANOL MAINTENANCE MECHANICCONCRETER NOTES PATIENT TRANSFERRED TO JIMMIE IN MEDICALLY STABLE CONDITION. TRANSFER DONE WITH THE HELP OF RT AND FIBERGLASS LAMINATOR. CONTINUITY OF CARE REPORT GIVEN TO VAUGHN GUTIERREZ.
--- NOTE | 2020-09-22 11:10 | NUR ---
FIREARMS SPECIALIST NOTE REPORT RECEIVED BY VAUGHN PRADHAN
[2020-09-22] MEDS ORDERED: POTASSIUM CHLORIDE 20 MEQ POWDER PACKET GT ONE (12:00)
[2020-09-22] MEDS ORDERED: MEROPENEM 1 G in IV NS 0.9% 100 ML IV ONE (14:00)
[2020-09-22] MEDS: SOD FERRIC GLUC 125 MG in IV NS 0.9% 100 ML IV SCH (15:07)
--- NOTE | 2020-09-22 18:29 | NUR ---
RN CLOSING NOTE PATIENT CURRENTLY IN BED SLEEPING. NO S/S OF DISTRESS AT THIS TIME. PATIENT'S OXYGEN SATURATION 99% ON CURRENT VENTILATOR SETTINGS: AC 10, TV 500, FIO2 30%, PEEP 5. TRACH #: SH 7 XLT CURRENTLY SHOWING SINUS RHYTHM ON TELE MONITOR. SKIN INTACT. CURRENT ON GTUBE FEEDING WITH JEVITY AT 55ML/HR, TOLERATING WELL. IV ON R HAND 22G, INTACT AND PATENT. NO REDNESS OR SWELLING AT THIS TIME. SOFT WRIST RESTRAINT ON LEFT ARM. MONITORING DONE PER HOSPITAL POLICY. CIRCULATION WNL, NO SKIN IRRIATION AT THIS TIME. BED LOCKED IN LOWEST POSITION, CALL LIGHT WITHIN REACH. WILL ENDORSE TO PLC ENGINEER FOR CHLOÉ
--- NOTE | 2020-09-22 20:00 | NUR ---
RN CHEMICAL DEPENDENCY note Pt in bed, sleeping but easily arousable. Nonverbal. Breathing even and unlabored with no sob or acute distress noted. Trach patent and midline. No s/s of pain or discomfort. Right hand IV site patent and intact. Gtube in place, placement verified via auscultation. GTF infusing well. No residual noted. Pt kept clean and dry, All needs rendered. Repositioned. Bed in lowest position. Call light within reach. HOB elevated. SRX2 up. Will continue to monitor.
--- NOTE | 2020-09-22 20:44 | NUR ---
turn laster note Left soft wrist restraint discontinued due to pt do not require restraint. Pt calm, no agitation or or episode of pulling life sustaining tubings. Will continue to monitor.
[2020-09-22] MEDS: ATORVASTATIN 40 MG TABLET GT SCH (21:16)
[2020-09-22] MEDS: EZETIMIBE 10 MG TABLET GT SCH (21:16)
[2020-09-22] MEDS: MEROPENEM 1 G in IV NS 0.9% 100 ML IV SCH (21:16)
[2020-09-23] VITALS: BP 154/90
[2020-09-23] MEDS: IPRATROPIUM BROMIDE 14 GM INHALER (or 12.9 GM) IH SCH ×7 (03:31→23:28)
[2020-09-23 04:00] VITALS: BP 145/97
[2020-09-23] MEDS: JEVITY 1.2 CAL 1,000 ML BOTTLE GT PRN ×2 (05:16→23:47)
[2020-09-23 05:51] LABS: BASOPHILS % (AUTO) 0.2 % (0.0-2.0); EOSINOPHILS % (AUTO) 0.3 % (0.0-6.0); HEMATOCRIT 36 % (33-45); HEMOGLOBIN 11.4 g/dL (11.5-14.8); LYMPHOCYTES # (AUTO) 0.8 /CMM (0.8-4.8); LYMPHOCYTES % (AUTO) 7.3 % (20.0-44.0); MEAN CORPUSCULAR HGB CONC 32 g/dl (31.0-36.0); MEAN CORPUSCULAR VOLUME 95 fL (82-100); MONOCYTES # (AUTO) 0.7 /CMM (0.1-1.30); MONOCYTES % (AUTO) 6.4 % (2.0-12.0); NEUTROPHILS # (AUTO) 9.7 /CMM (1.8-8.9); NEUTROPHILS % (AUTO) 85.8 % (43.0-81.0); PLATELET COUNT (AUTO) 317 /CMM (150-450); RED BLOOD CELL COUNT(AUTO) 3.73 MIL/uL (4.0-5.2); WHITE BLOOD COUNT (AUTO) 11.3 K/uL (4.3-11.0)
--- NOTE | 2020-09-23 05:53 | NUR ---
MS RN note Unable to get accurate amount of output due to pt is incontinent and uses diaper. However, pt had x2 bm episodes moderate amount and x1 void large amount.
[2020-09-23 06:06] LABS: CALCIUM, SERUM 6.8 mg/dL (8.5-10.1); CREATININE 0.9 mg/dL (0.6-1.3); MAGNESIUM 2.4 mg/dL (1.8-2.4); POTASSIUM 3.4 mmol/L (3.5-5.1)
[2020-09-23] MEDS: LEVOTHYROXINE SODIUM 125 MCG TABLET GT SCH (06:31)
--- NOTE | 2020-09-23 06:39 | NUR ---
MS RN Closing note Pt in bed, awake a/o x1. nonverbal, eye tracking when called by name. Breathing even and unlabored with no sob or acute distress noted. No s/s of pain and discomfort. RH iv site patent and intact. gtube in place , gtf infusing well. x1 emesis noted 30ml, all water, held feeding, HOB elevated. Pt kept clean and dry. All needs rendered Call light within reach. Srx2 up. Repositioned q2h . Will endorse to am nurse for continuity of care.
[2020-09-23 08:00] VITALS: BP 163/102
--- NOTE | 2020-09-23 08:00 | NUR ---
VENDING SUPERVISOR NOTE PATIENT IN BED ,AWAKE ,ALERT,ABLE TO MAKE SIMPLE COMMAND WITH TRACH TO VENT SETTING ORDERED ORAL AND TRACH SUCTION DONE, NO SOB NOTED ALL NEEDS ATTENDED, ON TELE MONITOR HR ST 86 , ON G TUBE FEEDING ORDERED, KEEP HOB ELEVATED ,NO RESIDUAL NOTED AT THIS TIME , BED IN LOWEST AND LOCKED POSITION , CALL LIGHT WITHIN, RT HAND HL INTACT AND FLUSHED WELL REACH, WILL MONITOR
[2020-09-23] MEDS: MEROPENEM 1 G in IV NS 0.9% 100 ML IV SCH ×2 (08:42→21:23)
[2020-09-23] MEDS: QUETIAPINE FUMARATE 25 MG TABLET GT SCH ×2 (08:43→16:18)
[2020-09-23] MEDS: methylPREDNISolone SOD SUCC 125 MG/2ML VIAL IV SCH (08:43)
[2020-09-23] MEDS: CALCITRIOL 0.25 MCG CAPSULE GT SCH (08:44)
[2020-09-23] MEDS: METOPROLOL TARTRATE 50 MG TABLET GT SCH ×2 (08:44→21:25)
[2020-09-23] MEDS: FUROSEMIDE 40 MG TABLET GT SCH (08:44)
[2020-09-23] MEDS: FAMOTIDINE (20 MG) 20 MG TABLET GT SCH (08:44)
[2020-09-23] MEDS: MULTIVIT W/MINERALS 1 TAB TABLET GT SCH (08:44)
[2020-09-23] MEDS: ENOXAPARIN SODIUM 30 MG/0.3 ML DISP.SYRIN SQ SCH (08:53)
[2020-09-23] MEDS: PROSOURCE / PROSTAT (PYXIS) 30 ML UDC GT SCH (08:57)
[2020-09-23] MEDS ORDERED: methylPREDNISolone SOD SUCC 40 MG/ML VIAL IV SCH (09:00)
[2020-09-23] MEDS ORDERED: POTASSIUM CHLORIDE 20 MEQ POWDER PACKET GT SCH (10:30)
[2020-09-23] MEDS: POTASSIUM CHLORIDE 20 MEQ POWDER PACKET GT SCH ×2 (11:00→11:26)
[2020-09-23] MEDS: LISINOPRIL (10MG) 10 MG TABLET PO SCH ×2 (11:00→21:24)
--- NOTE | 2020-09-23 11:00 | NUR ---
television reporter not keep clean dry reposition done, k 3.4 , notified with order to to give kcl replacement, will f\u
[2020-09-23] MEDS: MUPIROCIN OINT 2% 22 GM TUBE NS SCH ×2 (11:04→21:31)
[2020-09-23] MEDS: ACETAMINOPHEN 325 MG TABLET MC PRN (11:26)
[2020-09-23 12:00] VITALS: BP 160/86
[2020-09-23] MEDS: SOD FERRIC GLUC 125 MG in IV NS 0.9% 100 ML IV SCH (13:55)
--- NOTE | 2020-09-23 15:00 | NUR ---
RN NOTE PT ROUNDING MADE, SUCTIONED PT, PT CHANGED. PT DOING WELL
[2020-09-23 16:00] VITALS: BP 156/96
--- NOTE | 2020-09-23 18:18 | NUR ---
inbound telemarketer note patient in bed ,with trach to vent setting as ordered trach care done, oral suction done, on g tube feeding as ordered, keep hob elelvated at all time keep clean dry made a bowel movement , bed in lowest and locked position , will cont to monitor
[2020-09-23 20:00] VITALS: BP 155/83
--- NOTE | 2020-09-23 20:00 | NUR ---
RN NOTE RECEIVED PT IN THE BED AWAKE. PT IS ABLE TO ANSWER YES OR NO QUESTIONS. PT IS TOLERATING VENT SETTING AND SATING 100%, AND THERE IS NO S/S OF DISTRESS. PT ON TELE MONITOR SHOWING SR WITH PACs.PT HAS G TUBE, PATENT AND FLUSHES WELL, NO RESIDUAL NOTED. SAFETY MEASURE IN PLACE.
[2020-09-23] MEDS: EZETIMIBE 10 MG TABLET GT SCH (21:24)
[2020-09-23] MEDS: ATORVASTATIN 40 MG TABLET GT SCH (21:25)
[2020-09-24] VITALS: BP 146/80
[2020-09-24] MEDS: IPRATROPIUM BROMIDE 14 GM INHALER (or 12.9 GM) IH SCH ×6 (03:09→23:59)
--- NOTE | 2020-09-24 03:44 | NUR ---
RT NOTE PT REC'D TRACHED ON [facility] VENT ON AC MODE. PT SHOWS NO SIGNS OF RESP DISTRESS OR SOB. TRACH IS PATENT AND SECURED. SX'D FOR MOD AMT OF PALE YELLOW SECRETIONS. VENT PLUGGED INTO RED OUTLET. ALARMS ARE SET AND AUDIBLE. AMBU BAG BEDSIDE. WILL CONTINUE TO MONITOR CLOSELY. Addendum: 09/24/20 at 0346 by EZEQUIEL FREIRE RT Amended: Links added.
[2020-09-24 04:00] VITALS: BP 152/91
[2020-09-24 06:02] LABS: BASOPHILS % (AUTO) 0.2 % (0.0-2.0); EOSINOPHILS % (AUTO) 0.1 % (0.0-6.0); HEMATOCRIT 37 % (33-45); LYMPHOCYTES # (AUTO) 0.7 /CMM (0.8-4.8); LYMPHOCYTES % (AUTO) 4.9 % (20.0-44.0); MEAN CORPUSCULAR HGB CONC 32 g/dl (31.0-36.0); MEAN CORPUSCULAR VOLUME 98 fL (82-100); MONOCYTES # (AUTO) 0.8 /CMM (0.1-1.30); MONOCYTES % (AUTO) 5.9 % (2.0-12.0); NEUTROPHILS # (AUTO) 12.7 /CMM (1.8-8.9); NEUTROPHILS % (AUTO) 88.9 % (43.0-81.0); PLATELET COUNT (AUTO) 361 /CMM (150-450); RED BLOOD CELL COUNT(AUTO) 3.83 MIL/uL (4.0-5.2); WHITE BLOOD COUNT (AUTO) 14.2 K/uL (4.3-11.0)
[2020-09-24 06:31] LABS: CALCIUM, SERUM 7.8 mg/dL (8.5-10.1); CREATININE 0.8 mg/dL (0.6-1.3)
[2020-09-24 06:33] LABS: MAGNESIUM 2.6 mg/dL (1.8-2.4); PHOSPHORUS 3.5 mg/dL (2.5-4.9)
[2020-09-24 06:41] LABS: ALBUMIN 2.4 g/dL (3.4-5.0); BILIRUBIN,DIRECT 0.1 mg/dL (0.0-0.2); BILIRUBIN,TOTAL 0.4 mg/dL (0.2-1.0); TOTAL PROTEIN, SERUM 7.3 g/dL (6.4-8.2)
--- NOTE | 2020-09-24 07:20 | NUR ---
RN OPENING NOTES RECEIVED PT IN THE BED AWAKE. ABLE TO ANSWER YES OR NO QUESTIONS BY NODDING. PT IS TOLERATING VENT SETTING AND SATING 100%, NO SOB OR ANY S/S OF DISTRESS. TELE MONITOR SHOWING SR. G TUBE POSITIVE PLACEMENT CHECKED THRU AUSCULTATION, NO RESIDUAL NOTED. JEVITY 1.2 @55CC/HR TOLERATING FEEDING WELL. SAFETY MEASURE IN PLACE. CALL LIGHT WITHIN REACH. BED LOCKED AND AT LOWEST POSITION WITH SIDE RAILS UP. WILL CONTINUE TO MONITOR
--- NOTE | 2020-09-24 07:29 | NUR ---
RN NOTE PT REMAINED STABLE DURING MY SHIFT, NO ACUTE CHANGES REPORT GIVEN TO INCOMING SHIFT FOR CHLOÉ.
[2020-09-24 08:00] VITALS: BP 154/97
[2020-09-24] MEDS: CALCITRIOL 0.25 MCG CAPSULE GT SCH (08:44)
[2020-09-24] MEDS: FAMOTIDINE (20 MG) 20 MG TABLET GT SCH (08:44)
[2020-09-24] MEDS: LEVOTHYROXINE SODIUM 125 MCG TABLET GT SCH (08:44)
[2020-09-24] MEDS: FUROSEMIDE 40 MG TABLET GT SCH (08:44)
[2020-09-24] MEDS: MULTIVIT W/MINERALS 1 TAB TABLET GT SCH (08:45)
[2020-09-24] MEDS: QUETIAPINE FUMARATE 25 MG TABLET GT SCH ×2 (08:45→17:50)
[2020-09-24] MEDS: LISINOPRIL (10MG) 10 MG TABLET PO SCH ×2 (08:45→21:48)
[2020-09-24] MEDS: METOPROLOL TARTRATE 50 MG TABLET GT SCH ×2 (08:46→21:49)
[2020-09-24] MEDS: methylPREDNISolone SOD SUCC 125 MG/2ML VIAL IV SCH (08:48)
[2020-09-24] MEDS: MEROPENEM 1 G in IV NS 0.9% 100 ML IV SCH ×2 (08:48→21:41)
[2020-09-24] MEDS: PROSOURCE / PROSTAT (PYXIS) 30 ML UDC GT SCH (08:51)
[2020-09-24] MEDS: MUPIROCIN OINT 2% 22 GM TUBE NS SCH ×2 (08:57→21:48)
[2020-09-24] MEDS: ENOXAPARIN SODIUM 30 MG/0.3 ML DISP.SYRIN SQ SCH (08:59)
[2020-09-24 12:00] VITALS: BP 165/98
[2020-09-24] MEDS: JEVITY 1.2 CAL 1,000 ML BOTTLE GT PRN (13:31)
[2020-09-24 16:00] VITALS: BP 149/86
--- NOTE | 2020-09-24 17:35 | NUR ---
RT NOTE PT received trach'd and on [facility] vent w ordered settings. Alarms are set and audible. Vent is plugged into red outlet. Pt sx'd for thick yellow secretions. MDI treatments given w no adverse reactions. No distress noted t/o shift. Addendum: 09/24/20 at 1736 by JUDY LOVELACE RT Amended: Links added.
--- NOTE | 2020-09-24 19:23 | NUR ---
RN CLOSING NOTES PT RESTING IN THE BED AWAKE. ABLE TO ANSWER YES OR NO QUESTIONS BY NODDING. PT IS TOLERATING VENT SETTING AND SATING 97%, NO SOB OR ANY S/S OF DISTRESS. TELE MONITOR SHOWING SR. G TUBE POSITIVE PLACEMENT CHECKED THRU AUSCULTATION, NO RESIDUAL NOTED. JEVITY 1.2 @55CC/HR TOLERATING FEEDING WELL. SAFETY MEASURE IN PLACE. CALL LIGHT WITHIN REACH. BED LOCKED AND AT LOWEST POSITION WITH SIDE RAILS UP. WILL ENDORSE TO NIGHT NURSE FOR CHLOÉ
--- NOTE | 2020-09-24 19:25 | NUR ---
RN OPENING NOTES RECEIVED PT IN BED. AWAKE. ALERT. NON VERBAL. TRACH TO VENT. SHILEY 7 XLT AC 10 RV 500 FIO2 30% PEEP OF 5. ON CONT O2 MONITORING PRESENTS O2 SATURATION AT 97% TOLERATING WELL NO S/S OF RESP DISTRESS OR SOB NOTED. BREATHING IS EVEN AND UNLABORED. PT HAS IV SITE, RIGHT HAND. FLUSHED ASEPTICALLY, PATENT. RIGHT HAND CONTRACTED. PT HAS GTUBE PRESENT. AUSCULTATED WITH DAY SHIFT RN TO CONFIRM PLACEMENT. RESIDUAL OF LESS THAN 5CC NOTED. JEVITY RUNNING AT 55ML/HR. TOLERATING FEEDING. SAFETY MEASURES IN PLACE. WITH HOB ELEVATED.
[2020-09-24 20:00] VITALS: BP 142/92
--- NOTE | 2020-09-24 21:05 | NUR ---
CHANGED PT VOID, EXCESSIVE IN AMOUNT, ODOROUS. DARK YELLOW. WILL CONTINUE TO MONITOR.
--- NOTE | 2020-09-24 21:10 | NUR ---
PT HAD 1 FORMED SOFT BROWN BM.
[2020-09-24] MEDS: ATORVASTATIN 40 MG TABLET GT SCH (21:41)
[2020-09-24] MEDS: EZETIMIBE 10 MG TABLET GT SCH (21:49)
--- NOTE | 2020-09-24 22:05 | NUR ---
PT HAS MODERATE AMOUNT OF THING CLEAR ORAL SECRETIONS. SUCTIONED.
[2020-09-25] VITALS: BP 142/73
[2020-09-25] MEDS: ACETAMINOPHEN 325 MG TABLET MC PRN ×3 (01:25→12:31)
--- NOTE | 2020-09-25 01:25 | NUR ---
PT PULLED OUT IV SITE, CATHETER INTACT. NO S/S OF BLEEDING. NEW IV RIGHT FA #22 PLACED WILL CONTINUE TO MONITOR. Addendum: 09/25/20 at 0135 by VENICE MIGUEL RN LEFT FA HAS THE NEW IV SITE*
--- NOTE | 2020-09-25 01:53 | NUR ---
CLEANED PT VOID ODOROUS, MODERATE IN AMOUNT.
--- NOTE | 2020-09-25 02:33 | NUR ---
GAVE REPORT TO ADALGISA MENDES FOR CONTINUATION OF CARE
--- NOTE | 2020-09-25 02:35 | NUR ---
RN NOTE REPORT RECEIVED FROM VENICE MENDES. RECEIVED PATIENT IN BED, NON VERBAL, RESPONDS TO YES OR NO QUESTIONS BY NODDING HEAD. PATIENT IN NO S/SX OF ACUTE DISTRESS AT THIS TIME. PATIENT'S BREATHING IS EVEN AND UNLABORED. PATIENT ON TRACH CONNECTED TO MECHANICAL VENTILATOR WITH SETTINGS PRECRIBED; TOLERATING WELL SATURATING >95%. PATIENT ON TELE MONITOR READING NSR, HR AT 90'S. NOTED IV SITE LFA 22G, PATENT AND FLUSHING WELL, NO S/S OF INFECTION OR INFILTRATION, SALINE LOCKED. NOTED GTUBE INTACT, PLACEMENT WAS CHECKED BY ASPIRATION OF GASTRIC CONTENTS, AND AUSCULTATION, WITH TUBE FEEDING OF JEVITY 1.2 AT 55 ML/HR. SAFETY MEASURES IMPLEMENTED PER PROTOCOL. PATIENT BED ALARM IS ON. HEAD OF BED ELEVATED. BED IS LOCKED, IN LOWEST POSITION AND SIDE RAILS UP. CALL LIGHT WITHIN REACH OF THE PATIENT. ASPIRATION AND FALL PRECAUTIONS MAINTAINED. WILL CONTINUE TO MONITOR AND REASSESS FOR ANY CHANGES.
[2020-09-25] MEDS: IPRATROPIUM BROMIDE 14 GM INHALER (or 12.9 GM) IH SCH ×6 (03:54→23:48)
[2020-09-25 06:00] VITALS: BP 142/73
--- NOTE | 2020-09-25 07:00 | NUR ---
RN NOTE NOTED TEMP 100.1 AT 0500. COOLING MEASURES PROVIDED. PRN TYLENOL 650 MG ADMINISTERED ORDERED. WILL CONTINUE TO MONITOR CONDITION.
--- NOTE | 2020-09-25 07:30 | NUR ---
RN NOTE PATIENT REMAINS IN ROOM. NO SIGNS OF RESPIRATORY DISTRESS. ON TRACH CONNECTED TO MECHANICAL VENT WITH PRESCRIBED SETTINGS. SAFETY MEASURES IMPLEMENTED, BED IN LOWEST POSITION, LOCKED, SIDE RAILS UP, CALL LIGHT WITHIN REACH. ALL NEEDS AND ORDERS ADDRESSED DURING THE SHIFT. ALL DUE MEDS GIVEN ORDERED. PATIENT KEPT CLEAN AND COMFORTABLE WITHIN THE SHIFT. ENDORSED TO NNAMDI MENDES FOR CONTINUATION OF CARE. LATEST TEMP 99.5 DEG FARENHEIT
[2020-09-25] MEDS: JEVITY 1.2 CAL 1,000 ML BOTTLE GT PRN (07:31)
[2020-09-25 08:00] VITALS: BP 156/84
--- NOTE | 2020-09-25 08:00 | NUR ---
GRAPHICS EDIT TECHNICIAN NOTE PATIENT IN BED , ALL NEEDS ATTENDED, AWAKE ALERT WITH TRACH TO VENT SETTING ORDERED, ON TELE MONITOR SR HR 97 ON G TUBE FEEDING ORDERED, KEEP HOB ELEVATED AT ALL TIME , RESIDUAL 5 ML LT FA HL INTACT AND FLUSHED WELL , BED IN LOWEST AND LOCKED POSITION , WILL CONT TO MONITOR, SAFETY MEASURE PROVIDED
[2020-09-25] MEDS: QUETIAPINE FUMARATE 25 MG TABLET GT SCH ×2 (08:35→16:56)
[2020-09-25] MEDS: methylPREDNISolone SOD SUCC 125 MG/2ML VIAL IV SCH (08:35)
[2020-09-25] MEDS: MULTIVIT W/MINERALS 1 TAB TABLET GT SCH (08:35)
[2020-09-25] MEDS: FAMOTIDINE (20 MG) 20 MG TABLET GT SCH (08:36)
[2020-09-25] MEDS: LISINOPRIL (10MG) 10 MG TABLET PO SCH ×2 (08:36→21:38)
[2020-09-25] MEDS: FUROSEMIDE 40 MG TABLET GT SCH (08:36)
[2020-09-25] MEDS: LEVOTHYROXINE SODIUM 125 MCG TABLET GT SCH (08:37)
[2020-09-25] MEDS: PROSOURCE / PROSTAT (PYXIS) 30 ML UDC GT SCH (08:37)
[2020-09-25] MEDS: METOPROLOL TARTRATE 50 MG TABLET GT SCH ×2 (08:37→21:38)
[2020-09-25] MEDS: CALCITRIOL 0.25 MCG CAPSULE GT SCH (08:37)
[2020-09-25] MEDS: ENOXAPARIN SODIUM 30 MG/0.3 ML DISP.SYRIN SQ SCH (08:38)
[2020-09-25] MEDS: MUPIROCIN OINT 2% 22 GM TUBE NS SCH ×2 (08:57→21:38)
[2020-09-25] MEDS: MEROPENEM 1 G in IV NS 0.9% 100 ML IV SCH ×2 (08:58→21:38)
--- NOTE | 2020-09-25 09:10 | NUR ---
GATE MANAGER NOTE DR WILSON AT BEDSIDE REPORTED T NOW 99.9
[2020-09-25] MEDS: clonazePAM 1 MG TABLET GT PRN (11:19)
--- NOTE | 2020-09-25 11:22 | NUR ---
telephone technician note very restless Klonopin via g tube given ,t for t 99.5 given ,will monitor
[2020-09-25 12:00] VITALS: BP 105/69
[2020-09-25 16:00] VITALS: BP 137/93
--- NOTE | 2020-09-25 16:00 | NUR ---
SLOPE HOIST OPERATOR NOTE TURN REPOSITION DONE TRACH CARE DONE, ALL NEEDS ATTENDED
--- NOTE | 2020-09-25 18:00 | NUR ---
ELECTROLESS PLATER NOTE PATIENT AT RISK FOR FURTHER SKIN BREAKDOWN DUE TO CURRENT CONDITION, INCONTINENT WITH BOWEL AND BLADDER AND IMMOBILITY AND DUE TO CURRENT DX ,CALLED TO DR JEREMY EPSTEIN TO PLACE HAYNES CATH ,ORDER CARRIED OUT
--- NOTE | 2020-09-25 18:36 | NUR ---
MEAL GRINDER TENDER NOTE HAYNES CATH PLACED ORDERED, NOT IN DISTRESS
--- NOTE | 2020-09-25 19:10 | NUR ---
RN OPENING NOTES RECEIVED PT IN BED. RESTING. PT IS NON VERBAL. TRACH TO VENT. SHILEY 7 XLT AC 10 RV 500 FIO2 30% PEEP OF 5. O2 SATURATION AT 96% TOLERATING WELL NO S/S OF RESP DISTRESS OR SOB NOTED. BREATHING IS EVEN AND UNLABORED AT THIS TIME. PT HAS IV SITE, LEFT FOREARM FLUSHED ASEPTICALLY, PATENT. PT RIGHT HAND CONTRACTED. PT HAS GTUBE, AUSCULTATED TO CONFIRM PLACEMENT. RESIDUAL OF LESS THAN 5CC NOTED. JEVITY RUNNING AT 55ML/HR. TOLERATING FEEDING. SAFETY MEASURES IN PLACE. WITH HOB ELEVATED. ID BAND ON. SIDE RAILS UP X2 WILL CONTINUE TO CLOSELY MONITOR..
[2020-09-25 20:00] VITALS: BP_SYST 105; BP_SYST 111; BP_DIAS 69; BP_DIAS 78
--- NOTE | 2020-09-25 20:05 | NUR ---
PT HAS A LOT OF ORAL SECRETIONS, PT SUCTIONED. WILL CONTINUE TO MONITOR.
--- NOTE | 2020-09-25 20:10 | NUR ---
RT Pt recv'd with a [employer] 7XLT trach on AC vent settings. Pt is awake and alert with trach patent and secured. No respiratory distress noted at this time. MDI tx given with no adverse reaction. Spare trach and ambu bag at bedside. Vent is plugged into red outlet with alarms on and audible.
[2020-09-25] MEDS: EZETIMIBE 10 MG TABLET GT SCH (21:37)
[2020-09-25] MEDS: ATORVASTATIN 40 MG TABLET GT SCH (21:38)
[2020-09-26] VITALS: BP 105/69
--- NOTE | 2020-09-26 00:41 | NUR ---
PT HAD 1 BM, SOFT FORMED. CLEANED, BED BATH GIVEN, TURNED AND REPOSITIONED.
[2020-09-26] MEDS: JEVITY 1.2 CAL 1,000 ML BOTTLE GT PRN ×2 (03:18→23:19)
--- NOTE | 2020-09-26 03:35 | NUR ---
PT HAS ORAL SECRETIONS, THICK CLEAR. SUCTIONED ORALLY AND WITH TRACH. RT AT BEDSIDE, CHANGED NECK TIE DRESSING AND INNER CANNULA. NO CHANGES IN VENT SETTING PT TOLERATING SATURATING AT 95% NO DIFFICULTY BREATHING NOTED. PT DENIES PAIN. WILL CONTINUE TO MONITOR
[2020-09-26 04:00] VITALS: BP 127/86
[2020-09-26] MEDS: IPRATROPIUM BROMIDE 14 GM INHALER (or 12.9 GM) IH SCH ×5 (04:12→19:37)
[2020-09-26] MEDS: ACETAMINOPHEN 325 MG TABLET MC PRN (05:30)
[2020-09-26 06:38] LABS: BASOPHILS % (AUTO) 0.2 % (0.0-2.0); EOSINOPHILS % (AUTO) 0.2 % (0.0-6.0); HEMATOCRIT 39 % (33-45); HEMOGLOBIN 12.3 g/dL (11.5-14.8); LYMPHOCYTES # (AUTO) 0.8 /CMM (0.8-4.8); LYMPHOCYTES % (AUTO) 5.5 % (20.0-44.0); MEAN CORPUSCULAR HGB CONC 31 g/dl (31.0-36.0); MEAN CORPUSCULAR VOLUME 98 fL (82-100); MONOCYTES # (AUTO) 0.9 /CMM (0.1-1.30); MONOCYTES % (AUTO) 6.2 % (2.0-12.0); NEUTROPHILS # (AUTO) 12.5 /CMM (1.8-8.9); NEUTROPHILS % (AUTO) 87.9 % (43.0-81.0); PLATELET COUNT (AUTO) 344 /CMM (150-450); RED BLOOD CELL COUNT(AUTO) 4.01 MIL/uL (4.0-5.2); WHITE BLOOD COUNT (AUTO) 14.2 K/uL (4.3-11.0)
--- NOTE | 2020-09-26 07:15 | NUR ---
RN OPENING NOTES RECEIVED PT IN BED, AWAKE. NON VERBAL. ANSWERS YES OR NO QUESTIONS BY NODDING HEAD. MARIYA 7XLT AC: 10, RV: 500, FIO2: 30%, PEEP OF 5. O2 SATURATION AT 96% TOLERATING VENT SETTINGS WELL. NO SOB OR ANY S/S OF RESP DISTRESS NOTED. L FA #22 INTACT, PATENT AND FLUSHED. RIGHT HAND CONTRACTED. GTUBE AUSCULTATED TO CONFIRM PLACEMENT. RESIDUAL OF LESS THAN 5CC. JEVITY 1.2 @55ML/HR, TOLERATING FEEDING WELL. SAFETY MEASURES IMPLEMENTED. CALL LIGHT WITHIN REACH. HOB ELEVATED. ID BAND ON. BED LOCKED AND AT LOWEST POSITION WITH SIDE RAILS UP X2. WILL CONTINUE TO MONITOR.
[2020-09-26 07:24] LABS: CREATININE 0.9 mg/dL (0.6-1.3); MAGNESIUM 2.7 mg/dL (1.8-2.4); PHOSPHORUS 4.1 mg/dL (2.5-4.9); POTASSIUM 4.3 mmol/L (3.5-5.1)
--- NOTE | 2020-09-26 07:31 | NUR ---
RN CLOSING NOTES VENT SETTINGS STILL REMAIN ORDERED. NO S/S OF SOB OR RESPIRATORY DISTRESS NOTED. ON TELE MONITORING NSR 90S. NEEDS ATTENDED. TUBE FEEDING STILL RUNNING AT 55ML/HR RESIDUALS CHECK LESS THAN 5CC NOTED. NO COMPLAINT OF PAIN THROUGHOUT THE NIGHT. SAFETY MEASURES IN PLACE. HOB ELEVATED. BED LOCKED IN LOWEST POSITION CALL LIGHT WITHIN REACH. WILL ENDORSE TO AM NURSE FOR CONTINUATION OF CARE.
[2020-09-26 08:00] VITALS: BP 130/74
[2020-09-26] MEDS: LEVOTHYROXINE SODIUM 125 MCG TABLET GT SCH (08:01)
[2020-09-26] MEDS: MEROPENEM 1 G in IV NS 0.9% 100 ML IV SCH ×2 (08:58→21:34)
[2020-09-26] MEDS: FAMOTIDINE (20 MG) 20 MG TABLET GT SCH (08:58)
[2020-09-26] MEDS: METOPROLOL TARTRATE 50 MG TABLET GT SCH ×2 (09:01→21:00)
[2020-09-26] MEDS: LISINOPRIL (10MG) 10 MG TABLET PO SCH ×2 (09:02→21:00)
[2020-09-26] MEDS: CALCITRIOL 0.25 MCG CAPSULE GT SCH (09:02)
[2020-09-26] MEDS: QUETIAPINE FUMARATE 25 MG TABLET GT SCH ×2 (09:02→17:00)
[2020-09-26] MEDS: FUROSEMIDE 40 MG TABLET GT SCH (09:02)
[2020-09-26] MEDS: clonazePAM 1 MG TABLET GT PRN (09:03)
[2020-09-26] MEDS: methylPREDNISolone SOD SUCC 125 MG/2ML VIAL IV SCH (09:03)
[2020-09-26] MEDS: MUPIROCIN OINT 2% 22 GM TUBE NS SCH ×2 (09:05→21:46)
[2020-09-26] MEDS: PROSOURCE / PROSTAT (PYXIS) 30 ML UDC GT SCH (09:05)
[2020-09-26] MEDS: Z GUARD REMEDY 2 OZ OINT TP SCH (09:05)
[2020-09-26] MEDS: MULTIVIT W/MINERALS 1 TAB TABLET GT SCH (09:05)
[2020-09-26] MEDS: ENOXAPARIN SODIUM 30 MG/0.3 ML DISP.SYRIN SQ SCH (09:14)
[2020-09-26] MEDS ORDERED: DEXTROSE 50%-WATER 50 ML DISP.SYRIN IV PRN (10:30)
[2020-09-26 12:00] VITALS: BP 128/85
[2020-09-26] MEDS: BLOOD SUGAR DIAGNOSTIC 1 EACH STRIP IN SCH ×3 (12:45→23:14)
[2020-09-26] MEDS: INSULIN REGULAR, HUMAN 100 UNIT/ML 3 ML VIAL SQ PRN ×3 (12:57→23:14)
[2020-09-26 16:00] VITALS: BP_SYST 100; BP_SYST 109; BP_SYST 132; BP_DIAS 44; BP_DIAS 53; BP_DIAS 76
--- NOTE | 2020-09-26 19:10 | NUR ---
RN CLOSING NOTES VENT SETTINGS TOLERATED WELL. NO S/S OF SOB OR RESPIRATORY DISTRESS NOTED. ON TELE MONITORING NSR 90S. TUBE FEEDING STILL RUNNING AT 55ML/HR RESIDUALS CHECK LESS THAN 5CC NOTED. NO COMPLAINTS OF PAIN. SAFETY MEASURES IN PLACE. CALL LIGHT WITHIN REACH. HOB ELEVATED. BED LOCKED AND AT LOWEST POSITION WITH SIDE RAILS UP. . WILL ENDORSE TO NIGHT NURSE FOR CHLOÉ.
--- NOTE | 2020-09-26 19:58 | NUR ---
DOG FOOD DOUGH MIXER NOTES PATIENT IN BED, NONVERBAL, ABLE TO NOD HEAD. BREATHING EVEN AND UNLABORED ON MV SHILEY 7XLY, AC 10, TV 500, FIO2 30, AND PEEP 5. SHOWS SIGN OF ACUTE RESPIRATORY DISTRESS, NO ACUTE PAIN. GTUBE RUNNING JEVITY 1.2 AT 55ML/HR. NO RESIDUALS. IV ON FA 22G SL. SHOWS NO SIGNS OF INFILTRATION, NO REDNESS. SAFETY PRECAUTIONS IN PLACE. BED IN LOWEST POSITION, LOCKED, AND CALL LIGHT KEPT WITHIN REACH. WILL CONTINUE TO MONITOR.
[2020-09-26 20:00] VITALS: BP 107/43
[2020-09-26] MEDS: ATORVASTATIN 40 MG TABLET GT SCH (21:31)
[2020-09-26] MEDS: EZETIMIBE 10 MG TABLET GT SCH (21:31)
[2020-09-27] VITALS (8 sets, daily range): BP systolic 116–140; BP diastolic 51–88
[2020-09-27] MEDS: IPRATROPIUM BROMIDE 14 GM INHALER (or 12.9 GM) IH SCH ×7 (00:10→23:58)
[2020-09-27] MEDS: BLOOD SUGAR DIAGNOSTIC 1 EACH STRIP IN SCH ×3 (06:31→18:45)
[2020-09-27] MEDS: INSULIN REGULAR, HUMAN 100 UNIT/ML 3 ML VIAL SQ PRN ×3 (06:32→18:48)
--- NOTE | 2020-09-27 06:38 | NUR ---
MOBILE LOUNGE DRIVER NOTES PATIENT IN BED, NONVERBAL, ABLE TO NOD HEAD. BREATHING EVEN AND UNLABORED ON MV SHILEY 7XLY, AC 10, TV 500, FIO2 30, AND PEEP 5. SHOWS SIGN OF ACUTE RESPIRATORY DISTRESS, NO ACUTE PAIN. GTUBE RUNNING JEVITY 1.2 AT 55ML/HR. NO RESIDUALS. IV ON FA 22G SL. SHOWS NO SIGNS OF INFILTRATION, NO REDNESS. ALL DUE MEDICATIONS GIVEN. ALL NEEDS ATTENDED TO. SAFETY PRECAUTIONS IN PLACE. BED IN LOWEST POSITION, LOCKED, AND CALL LIGHT KEPT WITHIN REACH. WILL ENDORSE TO ONCOMING NURSE.
[2020-09-27 07:07] LABS: BASOPHILS % (AUTO) 0.3 % (0.0-2.0); EOSINOPHILS % (AUTO) 0.3 % (0.0-6.0); HEMATOCRIT 37 % (33-45); HEMOGLOBIN 11.5 g/dL (11.5-14.8); LYMPHOCYTES # (AUTO) 0.8 /CMM (0.8-4.8); LYMPHOCYTES % (AUTO) 5.3 % (20.0-44.0); MEAN CORPUSCULAR HGB CONC 31 g/dl (31.0-36.0); MEAN CORPUSCULAR VOLUME 101 fL (82-100); MONOCYTES # (AUTO) 0.9 /CMM (0.1-1.30); MONOCYTES % (AUTO) 6.3 % (2.0-12.0); NEUTROPHILS % (AUTO) 87.8 % (43.0-81.0); PLATELET COUNT (AUTO) 323 /CMM (150-450); RED BLOOD CELL COUNT(AUTO) 3.69 MIL/uL (4.0-5.2); WHITE BLOOD COUNT (AUTO) 14.8 K/uL (4.3-11.0)
[2020-09-27 07:18] LABS: CALCIUM, SERUM 7.9 mg/dL (8.5-10.1); CREATININE 0.8 mg/dL (0.6-1.3); MAGNESIUM 2.9 mg/dL (1.8-2.4); PHOSPHORUS 3.7 mg/dL (2.5-4.9); POTASSIUM 4.5 mmol/L (3.5-5.1)
[2020-09-27] MEDS: LEVOTHYROXINE SODIUM 125 MCG TABLET GT SCH (08:35)
[2020-09-27] MEDS: FAMOTIDINE (20 MG) 20 MG TABLET GT SCH (08:36)
[2020-09-27] MEDS: CALCITRIOL 0.25 MCG CAPSULE GT SCH (08:37)
[2020-09-27] MEDS: PROSOURCE / PROSTAT (PYXIS) 30 ML UDC GT SCH (08:37)
[2020-09-27] MEDS: QUETIAPINE FUMARATE 25 MG TABLET GT SCH ×2 (08:40→17:17)
[2020-09-27] MEDS: MULTIVIT W/MINERALS 1 TAB TABLET GT SCH (08:40)
[2020-09-27] MEDS: MEROPENEM 1 G in IV NS 0.9% 100 ML IV SCH ×2 (08:41→20:47)
[2020-09-27] MEDS: MUPIROCIN OINT 2% 22 GM TUBE NS SCH ×2 (08:41→22:37)
[2020-09-27] MEDS: methylPREDNISolone SOD SUCC 40 MG/ML VIAL IV SCH (08:41)
[2020-09-27] MEDS: Z GUARD REMEDY 2 OZ OINT TP SCH (08:42)
[2020-09-27] MEDS: ENOXAPARIN SODIUM 30 MG/0.3 ML DISP.SYRIN SQ SCH (08:43)
[2020-09-27] MEDS: LISINOPRIL (10MG) 10 MG TABLET PO SCH ×2 (08:44→20:52)
[2020-09-27] MEDS: METOPROLOL TARTRATE 50 MG TABLET GT SCH ×2 (08:45→20:52)
[2020-09-27] MEDS: FUROSEMIDE 40 MG TABLET GT SCH (13:17)
[2020-09-27] MEDS: TRAMADOL HCL 50 MG TABLET GT PRN ×2 (13:21→17:17)
--- NOTE | 2020-09-27 19:30 | NUR ---
SLIVER MACHINE OPERATOR OPENING NOTE RECEIVED PATIENT IN BED. PATIENT IS NONVERBAL, NODS, TRACKS WITH EYES. ON MECHANICAL VENT SHILEY #7, AC 10, TV 500, FIO2 30% PEEP 5. NO S/S RESP DISTRESS. NO S/S OR C/O PAIN AT THIS TIME. EXTERNAL TELE MONITOR READS SINUS RHYTHM SINUS TACH HR 102 WITH PACS. IN NO APPARENT DISTRESS. IV ACCESS IN LFA#22. GTUBE IS PRESENT, N O RESIDUAL, FLUSHED WITH NO RESISTANCE, FEEDING RUNNING JEVITY 1.2@55ML/HR. HAYNES CATHETER IS PRESENT, DRAINING TO GRAVITY. BED IS LOW AND LOCKED, HOB ELEVATED IN [place] SIDE RAILS UP X2, CALL LIGHT WITHIN REACH. WILL CONTINUE TO MONITOR.
[2020-09-27] MEDS: ACETAMINOPHEN 325 MG TABLET MC PRN (20:52)
[2020-09-27] MEDS ORDERED: MUPIROCIN OINT 2% 22 GM TUBE ONE (21:43)
--- NOTE | 2020-09-27 22:01 | NUR ---
telephony engineer note administered tylenol 650mg for slight temp 99.0 will continue to monitor.
[2020-09-27] MEDS: EZETIMIBE 10 MG TABLET GT SCH (22:39)
[2020-09-27] MEDS: ATORVASTATIN 40 MG TABLET GT SCH (22:40)
[2020-09-28] VITALS: BP 114/60
[2020-09-28] MEDS: BLOOD SUGAR DIAGNOSTIC 1 EACH STRIP IN SCH ×6 (02:08→21:42)
[2020-09-28] MEDS: INSULIN REGULAR, HUMAN 100 UNIT/ML 3 ML VIAL SQ PRN ×5 (02:14→21:49)
[2020-09-28] MEDS: JEVITY 1.2 CAL 1,000 ML BOTTLE GT PRN ×2 (02:16→17:05)
--- NOTE | 2020-09-28 02:26 | NUR ---
local telephone operator note patient temp 99.1. applied cooling measures, ac turned on. ica applied. removed excessive blankets. will continue to monitor.
[2020-09-28 04:00] VITALS: BP 93/54
[2020-09-28] MEDS: IPRATROPIUM BROMIDE 14 GM INHALER (or 12.9 GM) IH SCH ×6 (04:05→23:40)
--- NOTE | 2020-09-28 04:28 | NUR ---
RT Pt recv'd with a [employer] 7XLT trach on AC vent settings. Pt is awake and alert with trach patent and secured. No respiratory distress noted at this time. Spare trach and ambu bag at bedside. Vent is plugged into red outlet with alarms on and audible.
--- NOTE | 2020-09-28 07:00 | NUR ---
PUMP ERECTOR CLOSING NOTE PATIENT RESTING IN BED. NONVERBAL, NODS, TRACKS WITH EYES. REMAINS ON MECHANICAL VENT SHILEY #7, AC 10, TV 500, FIO2 30% PEEP 5. NO RESP DISTRESS. PATIENT DOES DISCONNECT HERSELF FROM VENT MULTIPLE TIMES PER SHIFT, CONNECTED TO SPO2 MONITOR. NO S/S PAIN. EXTERNAL TELE MONITOR READS SINUS RHYTHM/SINUS TACH. NO DISTRESS. IV ACCESS MAINTAINED IN LFA#22. GTUBE IS MAINTAINED, FLUSHED WITH H20 THROUGHOUT SHIFT, FEEDING RUNNING JEVITY 1.2@55ML/HR. HAYNES CATHETER IS MAINTAINED, DRAINING TO GRAVITY. BED REMAINS LOW AND LOCKED, HOB ELEVATED IN [place]IGH [place] SIDE RAILS UP X2, CALL LIGHT WITHIN REACH. WILL ENDORSE TO NEXT SHIFT.
--- NOTE | 2020-09-28 07:55 | NUR ---
MS/RN OPENING NOTE RECEIVED PATIENT FROM CONDITIONING MACHINE OPERATOR NURSE. NONVERBAL, EYES OPEN. PATIENT ON MECH VENT SAME VENT SETTINGS, TOLERATING WELL. BREATHING EVEN, NO SOB NOTED. LFA #22 INTACT AND PATENT. SAFETY MEASURES IN PLACE, BED LOCKED AND IN LOWEST POSITION, CALL LIGHT WITHIN REACH. WILL CONTINUE TO MONITOR AND ENSURE SAFETY.
[2020-09-28 08:00] VITALS: BP 107/73
[2020-09-28 08:52] LABS: BASOPHILS % (AUTO) 0.3 % (0.0-2.0); EOSINOPHILS % (AUTO) 0.4 % (0.0-6.0); HEMATOCRIT 37 % (33-45); HEMOGLOBIN 11.6 g/dL (11.5-14.8); LYMPHOCYTES # (AUTO) 0.8 /CMM (0.8-4.8); LYMPHOCYTES % (AUTO) 6.7 % (20.0-44.0); MEAN CORPUSCULAR HGB CONC 31 g/dl (31.0-36.0); MEAN CORPUSCULAR VOLUME 99 fL (82-100); MONOCYTES # (AUTO) 0.7 /CMM (0.1-1.30); NEUTROPHILS # (AUTO) 10.1 /CMM (1.8-8.9); NEUTROPHILS % (AUTO) 86.6 % (43.0-81.0); PLATELET COUNT (AUTO) 253 /CMM (150-450); RED BLOOD CELL COUNT(AUTO) 3.74 MIL/uL (4.0-5.2); WHITE BLOOD COUNT (AUTO) 11.7 K/uL (4.3-11.0)
[2020-09-28] MEDS: FUROSEMIDE 40 MG TABLET GT SCH (08:53)
[2020-09-28] MEDS: FAMOTIDINE (20 MG) 20 MG TABLET GT SCH (08:53)
[2020-09-28] MEDS: LEVOTHYROXINE SODIUM 125 MCG TABLET GT SCH (08:53)
[2020-09-28] MEDS: CALCITRIOL 0.25 MCG CAPSULE GT SCH (08:53)
[2020-09-28] MEDS: MULTIVIT W/MINERALS 1 TAB TABLET GT SCH (08:53)
[2020-09-28] MEDS: QUETIAPINE FUMARATE 25 MG TABLET GT SCH ×2 (08:54→17:04)
[2020-09-28] MEDS: LISINOPRIL (10MG) 10 MG TABLET PO SCH ×2 (08:55→21:31)
[2020-09-28] MEDS: METOPROLOL TARTRATE 50 MG TABLET GT SCH ×2 (08:56→21:31)
[2020-09-28] MEDS: methylPREDNISolone SOD SUCC 40 MG/ML VIAL IV SCH (08:57)
[2020-09-28] MEDS: ENOXAPARIN SODIUM 30 MG/0.3 ML DISP.SYRIN SQ SCH (08:58)
[2020-09-28 09:04] LABS: CREATININE 0.7 mg/dL (0.6-1.3); MAGNESIUM 2.9 mg/dL (1.8-2.4); PHOSPHORUS 3.1 mg/dL (2.5-4.9); POTASSIUM 3.8 mmol/L (3.5-5.1)
[2020-09-28] MEDS: Z GUARD REMEDY 2 OZ OINT TP SCH (09:07)
[2020-09-28] MEDS: PROSOURCE / PROSTAT (PYXIS) 30 ML UDC GT SCH (09:07)
[2020-09-28] MEDS: MUPIROCIN OINT 2% 22 GM TUBE NS SCH ×2 (09:07→21:50)
[2020-09-28 12:00] VITALS: BP 100/64
[2020-09-28 16:00] VITALS: BP 107/63
[2020-09-28] MEDS ORDERED: DEXTROSE 50%-WATER 50 ML DISP.SYRIN IV PRN (17:00)
--- NOTE | 2020-09-28 18:55 | NUR ---
MS/RN CLOSING NOTE PATIENT REMAINS IN STABLE CONDITION. NONVERBAL, EYES OPEN. PATIENT ON MECH VENT SAME VENT SETTINGS, TOLERATING WELL. BREATHING EVEN, NO SOB NOTED. LFA #22 INTACT AND PATENT. TELE MONITOR READING NSR 82. SAFETY MEASURES IN PLACE. WILL ENDORSE TO PRACTICAL MINISTRIES PROFESSOR NURSE.
[2020-09-28 20:00] VITALS: BP 112/65
[2020-09-28] MEDS: ATORVASTATIN 40 MG TABLET GT SCH (21:30)
[2020-09-28] MEDS: EZETIMIBE 10 MG TABLET GT SCH (21:30)
[2020-09-29] VITALS (7 sets, daily range): BP systolic 94–128; BP diastolic 54–78
--- NOTE | 2020-09-29 | NUR ---
RESPITE CARE PROVIDER NOTES, CLARIFY WITH AG HOME SECURITY ALARM INSTALLER ACCUCHECK ORDERS DUE TO PATIENT WITH 2 ORDERS FOR ACCUCHECK ONE Q6H AND OTHER ONE Q4HR, AG REPLIED WITH ORDERS TO DC Q6 HR ACCUCHECK AND CONTINUE WITH Q4HR WITH SLIDING SCALE COVERAGE, NOTED AND CARRIED OUT.
[2020-09-29] MEDS: BLOOD SUGAR DIAGNOSTIC 1 EACH STRIP IN SCH ×6 (01:09→21:29)
[2020-09-29] MEDS: INSULIN REGULAR, HUMAN 100 UNIT/ML 3 ML VIAL SQ PRN ×6 (01:10→21:33)
[2020-09-29] MEDS: IPRATROPIUM BROMIDE 14 GM INHALER (or 12.9 GM) IH SCH ×6 (03:30→23:34)
--- NOTE | 2020-09-29 07:00 | NUR ---
RN CLOSING NOTE, THE PATIENT ASLEEP, BUT AROUSES TO VERBAL STIMULI, ON MECHANICAL VENTILATOR TOLERATED SETTINGS WELL, NO SIGNIFICANT CHANGE IN CONDITION DURING THE NIGHT, BED LOCKED AND LOW POSITION, SIDE RAILS UP X2, CALL LIGHT WITHIN REACH, WILL ENDORSE CONTINUITY OF CARE TO ONCOMING NURSE.
[2020-09-29 07:23] LABS: BASOPHILS # (AUTO) 0.1 /CMM (0.0-0.2); BASOPHILS % (AUTO) 0.4 % (0.0-2.0); EOSINOPHILS % (AUTO) 0.5 % (0.0-6.0); HEMATOCRIT 36 % (33-45); HEMOGLOBIN 11.3 g/dL (11.5-14.8); LYMPHOCYTES # (AUTO) 0.7 /CMM (0.8-4.8); LYMPHOCYTES % (AUTO) 5.4 % (20.0-44.0); MEAN CORPUSCULAR HGB CONC 32 g/dl (31.0-36.0); MEAN CORPUSCULAR VOLUME 98 fL (82-100); MONOCYTES # (AUTO) 0.7 /CMM (0.1-1.30); MONOCYTES % (AUTO) 5.2 % (2.0-12.0); NEUTROPHILS # (AUTO) 11.8 /CMM (1.8-8.9); NEUTROPHILS % (AUTO) 88.5 % (43.0-81.0); PLATELET COUNT (AUTO) 256 /CMM (150-450); RED BLOOD CELL COUNT(AUTO) 3.62 MIL/uL (4.0-5.2); WHITE BLOOD COUNT (AUTO) 13.3 K/uL (4.3-11.0)
[2020-09-29 08:00] LABS: CALCIUM, SERUM 7.8 mg/dL (8.5-10.1); CREATININE 0.6 mg/dL (0.6-1.3); MAGNESIUM 2.7 mg/dL (1.8-2.4); PHOSPHORUS 2.9 mg/dL (2.5-4.9); POTASSIUM 4.1 mmol/L (3.5-5.1)
--- NOTE | 2020-09-29 08:09 | NUR ---
DEPUTY CHIEF MAGISTRATE OPEN NOTES PATIENT IS NON VERBAL OPENS EYES ON MECHANICAL VENTILATOR SHILEY #7 AC 10 TV 5000 O2 30% PEEP 5. WITH NO SIGNS OF DISTRESS. TELE MONITOR NSR. NO SIGNS OF PAIN AT THIS MOMENT. IV L FA #22G. G-TUBE FEEDING AT JEVITY 1.2 AT 55 ML/HR. HAYNES CATH INTACT. SAFETY MEASURES ARE APPLIED. BED IS IN LOWEST LOCKED POSITION WITH SIDE RAILS UP X 2 FOR SAFETY. CALL LIGHT IS WITHIN REACH. WILL CONTINUE TO MONITOR.
[2020-09-29] MEDS: FUROSEMIDE 40 MG TABLET GT SCH (08:19)
[2020-09-29] MEDS: METOPROLOL TARTRATE 50 MG TABLET GT SCH ×2 (08:19→21:20)
[2020-09-29] MEDS: LISINOPRIL (10MG) 10 MG TABLET PO SCH ×2 (08:20→21:19)
[2020-09-29] MEDS: MULTIVIT W/MINERALS 1 TAB TABLET GT SCH (08:29)
[2020-09-29] MEDS: QUETIAPINE FUMARATE 25 MG TABLET GT SCH ×2 (08:29→17:34)
[2020-09-29] MEDS: FAMOTIDINE (20 MG) 20 MG TABLET GT SCH (08:29)
[2020-09-29] MEDS: CALCITRIOL 0.25 MCG CAPSULE GT SCH (08:29)
[2020-09-29] MEDS: LEVOTHYROXINE SODIUM 125 MCG TABLET GT SCH (08:29)
[2020-09-29] MEDS: methylPREDNISolone SOD SUCC 40 MG/ML VIAL IV SCH (08:30)
[2020-09-29] MEDS: ENOXAPARIN SODIUM 30 MG/0.3 ML DISP.SYRIN SQ SCH (08:39)
[2020-09-29] MEDS: Z GUARD REMEDY 2 OZ OINT TP SCH (09:06)
[2020-09-29] MEDS: PROSOURCE / PROSTAT (PYXIS) 30 ML UDC GT SCH (10:26)
[2020-09-29] MEDS: JEVITY 1.2 CAL 1,000 ML BOTTLE GT PRN (13:03)
[2020-09-29] MEDS ORDERED: GLUCERNA 1.2 1,000 ML BOTTLE NG PRN (15:00)
--- NOTE | 2020-09-29 19:30 | NUR ---
DIE CASTING MACHINE SETTER OPEN NOTES PATIENT IS NON VERBAL OPENS EYES ON MECHANICAL VENTILATOR SHILEY #7 AC 10 TV 5000 O2 30% PEEP 5. WITH NO SIGNS OF DISTRESS. TELE MONITOR NSR WITH PAC 84. NO SIGNS OF PAIN AT THIS MOMENT. IV L FA #22G. G-TUBE FEEDING AT JEVITY 1.2 AT 55 ML/HR. HAYNES CATH INTACT. PATIENT REMAINED STABLE ALL NEEDS, TREATMENTS AND MEDICATIONS WERE ADMINISTERED SCHEDULED. SAFETY MEASURES ARE APPLIED. BED IS IN LOWEST LOCKED POSITION WITH SIDE RAILS UP X 2 FOR SAFETY. CALL LIGHT IS WITHIN REACH. WILL ENDORSE TO THE NEXT AUTO APPRENTICE MECHANIC. Addendum: 09/29/20 at 2019 by TAMAR LI RN ASIM MENDES CLOSED NOTES PATIENT IS NON VERBAL OPENS EYES ON MECHANICAL VENTILATOR SHILEY #7 AC 10 TV 5000 O2 30% PEEP 5. WITH NO SIGNS OF DISTRESS. TELE MONITOR NSR WITH PAC 84. NO SIGNS OF PAIN AT THIS MOMENT. IV L FA #22G. G-TUBE FEEDING AT JEVITY 1.2 AT 55 ML/HR. HAYNES CATH INTACT. PATIENT REMAINED STABLE ALL NEEDS, TREATMENTS AND MEDICATIONS WERE ADMINISTERED SCHEDULED. SAFETY MEASURES ARE APPLIED. BED IS IN LOWEST LOCKED POSITION WITH SIDE RAILS UP X 2 FOR SAFETY. CALL LIGHT IS WITHIN REACH. WILL ENDORSE TO THE NEXT AUTO APPRENTICE MECHANIC.
--- NOTE | 2020-09-29 19:45 | NUR ---
RN OPENING NOTES PATIENT RECEIVED RESTING IN BED, A/O X 0, OPENS EYES. ON MECHANICAL VENT, TOLERATING VENT SETTINGS WELL WITH BREATHING EVEN UNLABORED, NO SOB NOTED. NO SIGNS OF ACUTE DISTRESS. NO SIGNS OF PAIN OR DISCOMFORT. TELE MONITOR READING SR WITH PAC. IV LOCATED ON LFA #22 SL. GTUBE FEEDING RUNNING JEVITY @ 55 ML/HR. SAFETY PRECAUTIONS IN PLACE WITH BED IN LOWEST POSITION, CALL LIGHT WITHIN REACH, BREAKS ON, SIDE RAILS UP. WILL CONTINUE TO MONITOR THROUGHOUT THE NIGHT.
[2020-09-29] MEDS: EZETIMIBE 10 MG TABLET GT SCH (21:14)
[2020-09-29] MEDS: ATORVASTATIN 40 MG TABLET GT SCH (21:14)
--- NOTE | 2020-09-29 23:00 | NUR ---
GTUBE FEEDING REPLACED WITH GLUCERNA @ 55ML/HR.
[2020-09-30] VITALS: BP 135/83
[2020-09-30] MEDS: BLOOD SUGAR DIAGNOSTIC 1 EACH STRIP IN SCH ×5 (01:17→17:00)
[2020-09-30 04:00] VITALS: BP 143/82
[2020-09-30] MEDS: IPRATROPIUM BROMIDE 14 GM INHALER (or 12.9 GM) IH SCH ×4 (04:26→15:17)
[2020-09-30] MEDS: INSULIN REGULAR, HUMAN 100 UNIT/ML 3 ML VIAL SQ PRN (05:11)
--- NOTE | 2020-09-30 06:45 | NUR ---
RN CLOSING NOTES PATIENT RESTING IN BED, A/O X 0, OPENS EYES. ON MECHANICAL VENT, TOLERATING VENT SETTINGS WELL WITH BREATHING EVEN UNLABORED, NO SOB NOTED. NO SIGNS OF ACUTE DISTRESS. NO SIGNS OF PAIN OR DISCOMFORT. TELE MONITOR READING SR WITH PAC. IV LOCATED ON LFA #22 SL. GTUBE FEEDING RUNNING GLUCERNA @ 55 ML/HR. SAFETY PRECAUTIONS IN PLACE WITH BED IN LOWEST POSITION, CALL LIGHT WITHIN REACH, BREAKS ON, SIDE RAILS UP. ALL NEEDS ATTENDED TO. PATIENT KEPT CLEAN AND DRY THROUGHOUT THE NIGHT. WILL ENDORSE TO ONCOMING SHIFT ABOUT CHLOÉ.
[2020-09-30 08:00] VITALS: BP 134/78
[2020-09-30 08:24] LABS: BASOPHILS % (AUTO) 0.2 % (0.0-2.0); EOSINOPHILS % (AUTO) 0.9 % (0.0-6.0); HEMATOCRIT 37 % (33-45); HEMOGLOBIN 11.6 g/dL (11.5-14.8); LYMPHOCYTES # (AUTO) 0.7 /CMM (0.8-4.8); LYMPHOCYTES % (AUTO) 6.9 % (20.0-44.0); MEAN CORPUSCULAR HGB CONC 32 g/dl (31.0-36.0); MEAN CORPUSCULAR VOLUME 98 fL (82-100); MONOCYTES # (AUTO) 0.6 /CMM (0.1-1.30); MONOCYTES % (AUTO) 5.3 % (2.0-12.0); NEUTROPHILS # (AUTO) 9.4 /CMM (1.8-8.9); NEUTROPHILS % (AUTO) 86.7 % (43.0-81.0); PLATELET COUNT (AUTO) 231 /CMM (150-450); RED BLOOD CELL COUNT(AUTO) 3.74 MIL/uL (4.0-5.2); WHITE BLOOD COUNT (AUTO) 10.8 K/uL (4.3-11.0)
[2020-09-30 08:45] LABS: CALCIUM, SERUM 8.1 mg/dL (8.5-10.1); CREATININE 0.6 mg/dL (0.6-1.3); MAGNESIUM 2.5 mg/dL (1.8-2.4); PHOSPHORUS 3.6 mg/dL (2.5-4.9); POTASSIUM 4.5 mmol/L (3.5-5.1)
[2020-09-30] MEDS: Z GUARD REMEDY 2 OZ OINT TP SCH (09:00)
[2020-09-30] MEDS: CALCITRIOL 0.25 MCG CAPSULE GT SCH (09:00)
[2020-09-30] MEDS: methylPREDNISolone SOD SUCC 40 MG/ML VIAL IV SCH (09:00)
[2020-09-30] MEDS: FAMOTIDINE (20 MG) 20 MG TABLET GT SCH (09:00)
[2020-09-30] MEDS: LISINOPRIL (10MG) 10 MG TABLET PO SCH (09:01)
[2020-09-30] MEDS: METOPROLOL TARTRATE 50 MG TABLET GT SCH (09:01)
[2020-09-30] MEDS: FUROSEMIDE 40 MG TABLET GT SCH (09:01)
[2020-09-30] MEDS: QUETIAPINE FUMARATE 25 MG TABLET GT SCH ×2 (09:01→18:30)
[2020-09-30] MEDS: MULTIVIT W/MINERALS 1 TAB TABLET GT SCH (09:02)
[2020-09-30] MEDS: LEVOTHYROXINE SODIUM 125 MCG TABLET GT SCH (09:02)
[2020-09-30] MEDS: ENOXAPARIN SODIUM 30 MG/0.3 ML DISP.SYRIN SQ SCH (09:02)
[2020-09-30 12:00] VITALS: BP 134/78
[2020-09-30 13:00] VITALS: BP 152/87
[2020-09-30 16:00] VITALS: BP_SYST 152; BP_SYST 156; BP_DIAS 79; BP_DIAS 87
--- NOTE | 2020-09-30 16:43 | NUR ---
Report called to Kylah from [facility].
[2020-09-30] MEDS: PROSOURCE / PROSTAT (PYXIS) 30 ML UDC GT SCH (18:32)
--- NOTE | 2020-09-30 19:33 | NUR ---
Patient cleared for d/c to SNF by . Patient is vent depended. VS are stable and within baseline. No distress noted. NO s/s pain noted. IV line removed. ID wrist band removed. G-tube side clean. All needs attended, patient kept clean and dry. No skin issues found; skin is intact. Patient alert to self and able to say yes or no. Education provided. D/C instruction sighed by two nurses. No belongings . Patient safely picked up by ambulance.
--- NOTE | 2020-09-30 19:52 | NUR ---
Patient cleared for d/c to SNF by MD. Patient awake and alert x1; able to say yes or no. PAtient vent depended. No distress noted ; no s/s pain noted. Patient kept clean and dry; repositioned per protocol. PAtient has f/c draining well. No d/c order for f/c received. IV line removed; ID wrist band removed. G-tube side clean. Patient skin is intact. D/C instructions sighed by two nurses. Patient has no belongings. PAtient safely picked up by ambulance.
== END 2020-09-30 22:54 | DRG 207 ==
LOC: ER 15:50 → TELE 22:43 → UNDOADMIN 22:43 → TELE1 22:50 → TELE 22:50 → TELE2 23:00 → TELE1 23:00 → TELE-TD 23:28 → TELE2 09-18 18:29 → TELE-TD 09-22 10:50 → TELE1 09-22 14:07 → TELE 09-26 14:38
PROVIDERS: ADMIT Internal Medicine Nephrology; ATTEND Internal Medicine Nephrology
PROC: 5A1955Z Respiratory Ventilation, Greater than 96 Consecutive Hours (ICD-10-PCS; principal; 2020-09-17)
DX: J18.9 Pneumonia, unspecified organism (principal); J96.20 Acute and chronic respiratory failure, unspecified whether with hypoxia or hypercapnia; Z99.11 Dependence on respirator [ventilator] status; Q25.46 Tortuous aortic arch; G93.1 Anoxic brain damage, not elsewhere classified; K56.7 Ileus, unspecified; J44.0 Chronic obstructive pulmonary disease with (acute) lower respiratory infection; G93.49 Other encephalopathy; I11.0 Hypertensive heart disease with heart failure; I50.9 Heart failure, unspecified; I48.91 Unspecified atrial fibrillation; F03.90 Unspecified dementia, unspecified severity, without behavioral disturbance, psychotic disturbance, mood disturbance, and anxiety; Z93.0 Tracheostomy status; Z93.1 Gastrostomy status; E87.6 Hypokalemia; R13.10 Dysphagia, unspecified; K21.9 Gastro-esophageal reflux disease without esophagitis; Z91.09 Other allergy status, other than to drugs and biological substances; Z79.899 Other long term (current) drug therapy; Z79.51 Long term (current) use of inhaled steroids; J84.10 Pulmonary fibrosis, unspecified; E03.9 Hypothyroidism, unspecified; D64.9 Anemia, unspecified; R73.9 Hyperglycemia, unspecified
CPT/HCPCS: 31720; 36415; 36600; 71045-TC; 74018; 80048-TC; 80061-TC; 80076-TC; 82728-TC; 82803-TC; 82962-TC; 83540-TC; 83735-TC; 84100-TC; 84439-TC; 84443-TC; 85025-TC; 87040-TC; 87070-TC; 87081-TC; 87186-TC; 93307-TC; 94002-TC; 94003-TC; 94640; 94664; 94760-TC; 94762-TC; 94799-TC; 99082-TC; A4623; A7526; C9803; G0378; J0692; J1650; J1815; J2060; J2185; J2543; J2916; J2920; J2930; J3370; J3490; J7030; J7050; J7060; Q9967; U0003

== ENCOUNTER 2020-10-10 15:04 | Emergency (ER) | payer MEDICARE, BC ==
[~2020-10-10] VITALS: Ht 167.6 cm; Wt 78.5 kg
[~2020-10-10 15:04] MED LIST: ACET-868 GT; AMIN887L GT; APIX5TAB PO; ATOR80TA GT; BISA10SU11 RC; CALC0.253 GT; CARV6.252 PO; CLON1TAB12 GT; DEXT1CAP3 PO; EZET10TA6 GT; FAMO20TA8 GT; FURO-144 GT; GABA300C PO; GALA4TAB23 PO; IPRA0.2S49 IH; LEVO125T8 GT; LEVO75TA7 PO; MAGN400O6 GT; MAGN400T8 GT; MEMA10TA56 PO; METO100T14 GT; MULT-439 GT; NA P133E RC; QUET25TA GT; SERT100T12 PO; TRAM50TA2 GT
--- NOTE | 2020-10-10 15:29 | NUR ---
PATIENT CAME TO ER BED 16 BIB EMS FOR VAGINAL BLEEDING SINCE THIS MORNING. PER EMS, PATIENT HAS BRIGHT RED AND DARK RED BLOOD FROM THE FACILITY. TAKING PLAVIX. PATIENT WAS PREVIOUSLY COVID POSITIVE IN FEBRUARY. PENDING COVID RESULTS. AAOX1. NO SOB. BREATHING EVENLY AND UNLABORED ON TRACH-VENT. CONNECTED TO THE MONITOR.
--- NOTE | 2020-10-10 15:53 | NUR ---
BLOOD DRAWN AND SENT TO THE LAB BY PROJECT LEADER.
[2020-10-10 16:44] LABS: BASOPHILS % (AUTO) 0.2 % (0.0-2.0); EOSINOPHILS % (AUTO) 0.4 % (0.0-6.0); HEMATOCRIT 35 % (33-45); HEMOGLOBIN 11.4 g/dL (11.5-14.8); LYMPHOCYTES # (AUTO) 0.4 /CMM (0.8-4.8); LYMPHOCYTES % (AUTO) 4.2 % (20.0-44.0); MEAN CORPUSCULAR HGB CONC 33 g/dl (31.0-36.0); MEAN CORPUSCULAR VOLUME 99 fL (82-100); MONOCYTES # (AUTO) 0.3 /CMM (0.1-1.30); MONOCYTES % (AUTO) 2.9 % (2.0-12.0); NEUTROPHILS % (AUTO) 92.3 % (43.0-81.0); PLATELET COUNT (AUTO) 230 /CMM (150-450); RED BLOOD CELL COUNT(AUTO) 3.54 MIL/uL (4.0-5.2); WHITE BLOOD COUNT (AUTO) 9.8 K/uL (4.3-11.0)
[2020-10-10 16:49] LABS: ALBUMIN 3.1 g/dL (3.4-5.0); BILIRUBIN,DIRECT 0.1 mg/dL (0.0-0.2); BILIRUBIN,TOTAL 0.4 mg/dL (0.2-1.0); CALCIUM, SERUM 8.4 mg/dL (8.5-10.1); CREATININE 0.7 mg/dL (0.6-1.3); POTASSIUM 4.6 mmol/L (3.5-5.1); TOTAL PROTEIN, SERUM 7.3 g/dL (6.4-8.2)
[2020-10-10] MEDS ORDERED: NUT.237L30 PO (17:08)
[2020-10-10] MEDS ORDERED: LISI10TA5 PO (17:08)
[2020-10-10] MEDS ORDERED: ENOX30DI SQ (17:08)
--- NOTE | 2020-10-10 17:49 | NUR ---
Dang suazo in [facility] - 10/10/20 at 1750 by RAFY CALLED [facility] FOR RT UNIT TRANSPORT TO [facility] ETA [id number]
--- NOTE | 2020-10-10 17:50 | NUR ---
CALLED [facility] FOR RT UNIT TRANSPORT TO [facility] ETA [id number]
--- NOTE | 2020-10-10 19:37 | NUR ---
RT pt received on current settings on mechanical ventilation. trached, shiley 7 xlt. vent plugged in to red outlet. alarms on and audible. ambu bag at [facility]. no resp distress. no sob. minimal secretions suctioned. will continue to monitor.
--- NOTE | 2020-10-10 19:41 | NUR ---
JOSE GIVEN TO KODI LUEVANO Addendum: 10/10/20 at 1941 by CHELO KODI IS FROM [facility]
--- NOTE | 2020-10-10 22:16 | NUR ---
REPORT GIVEN TO TRANSPORT TEAM FOR CHLOÉ. AND TRANASFERRING RESPONSIBILITES.
[2020-10-10 22:17] VITALS: BP 124/57
== END 2020-10-10 22:18 | disposition home or self-care (01) ==
LOC: ER 15:07
DX: N93.8 Other specified abnormal uterine and vaginal bleeding (principal); F03.90 Unspecified dementia, unspecified severity, without behavioral disturbance, psychotic disturbance, mood disturbance, and anxiety; I10 Essential (primary) hypertension; I48.91 Unspecified atrial fibrillation; K21.9 Gastro-esophageal reflux disease without esophagitis; Z93.0 Tracheostomy status; Z88.8 Allergy status to other drugs, medicaments and biological substances; Z79.899 Other long term (current) drug therapy
CPT/HCPCS: 31720; 36415; 76856-TC; 80048-TC; 80076-TC; 85025-TC; 85730-TC